=== PATIENT | female | born 1990 | race Caucasian/White ===

== ENCOUNTER → 2016-12-09 | Outpatient (CLI) | payer OTHER ==
[~2016-12-09] MED LIST: ALBU17IN INH; CLIN1CAP5 PO; FOLI5INJ2 PO; INSULADS INJ; INSUN SC; INSUR SC; INSURSDRX SC; STUACAP PO; TYLE500T78 PO; VICO5TAB16 PO; VITAPRTA PO
--- NOTE | 2016-12-10 13:08 | REP ---
CERVICAL SPINE COMPLETE: 12/09/2016. Clinical history: Neck pain. No prior study. Findings: Nine views are provided. There is no torticollis on the AP view. The pedicles, spinous and transverse processes grossly intact. Open-mouth view shows dens and lateral masses aligning normally. Lateral view shows loss of normal cervical lordosis but flexion and extension views show adequate range of motion and no instability. Disc space and vertebral body heights are intact. There is no subluxation. C1-2 relationships were normal on all views. Foramina are adequate bilaterally. Impression: 1. Slight straightening of the cervical spine on the lateral view may reflect some spasm but there is no compression deformity, disc space narrowing, fracture or malalignment. The range of motion was adequate. C1-2 relationship normal. Signed by Yuniel Melo MD 12/10/2016 02:59 P
== END ==
LOC: M RAD 09:09
PROVIDERS: ATTEND Nurse Practitioner Family
DX: M54.2 Cervicalgia (principal)

== ENCOUNTER 2016-12-15 11:29 | Emergency (ER) | payer OTHER ==
[~2016-12-15] VITALS: Ht 165.1 cm; Wt 136.1 kg
[2016-12-15 11:30] VITALS: BP 160/89
[2016-12-15] MEDS ORDERED: IBUP60TA PO (11:39)
[2016-12-15] MEDS ORDERED: RABIES VACCINE HUMAN 2.5 INTERNATIONAL UNITS/ML VIAL (90675) IM ONE (12:15)
[2016-12-15] MEDS ORDERED: RABIES IMMUNE GLOBULIN 1500 INTERNATIONAL UNITS/10 ML VIAL (90375) IM ONE (12:15)
== END 2016-12-15 13:01 | disposition home or self-care (01) ==
LOC: M ED 12:08
DX: Z20.3 Contact with and (suspected) exposure to rabies (principal)

== ENCOUNTER 2016-12-18 12:04 | Emergency (ER) | payer OTHER ==
[~2016-12-18] VITALS: Ht 165.1 cm; Wt 136.1 kg
[2016-12-18 12:04] VITALS: BP 170/85
[~2016-12-18 12:04] MED LIST changes: +IBUP60TA PO
[2016-12-18] MEDS ORDERED: RABIES VACCINE HUMAN 2.5 INTERNATIONAL UNITS/ML VIAL (90675) IM ONE (12:30)
== END 2016-12-18 12:50 | disposition home or self-care (01) ==
LOC: M ED 12:33
DX: Z20.3 Contact with and (suspected) exposure to rabies (principal)

== ENCOUNTER 2016-12-22 11:36 | Emergency (ER) | payer OTHER ==
[~2016-12-22] VITALS: Ht 165.1 cm; Wt 136.1 kg
[2016-12-22] MEDS ORDERED: RABIES VACCINE HUMAN 2.5 INTERNATIONAL UNITS/ML VIAL (90675) IM ONE (12:15)
[2016-12-22 12:51] VITALS: BP 149/90
== END 2016-12-22 12:52 | disposition home or self-care (01) ==
LOC: M ED 12:10
DX: Z23 Encounter for immunization (principal); Z20.3 Contact with and (suspected) exposure to rabies; S61.451D Open bite of right hand, subsequent encounter; W54.0XXD Bitten by dog, subsequent encounter; Y92.89 Other specified places as the place of occurrence of the external cause; Y93.89 Activity, other specified; Y99.8 Other external cause status; Z79.899 Other long term (current) drug therapy; Z79.4 Long term (current) use of insulin; Z88.0 Allergy status to penicillin; F17.210 Nicotine dependence, cigarettes, uncomplicated

== ENCOUNTER → 2016-12-22 | Outpatient (CLI) | payer OTHER ==
[2016-12-22 11:48] LABS: ALBUMIN 3.1 GM/DL (3.2-5.2); ALBUMIN/GLOBULIN RATIO 0.94 (1.00-1.93); ALKALINE PHOSPHATASE 56 U/L (45-117); ALT/SGPT 26 U/L (12-78); ANION GAP 7 MEQ/L (8-16); AST/SGOT 18 U/L (15-37); BILIRUBIN,TOTAL 0.2 MG/DL (0.2-1.0); BLOOD UREA NITROGEN 13 MG/DL (7-18); CALCIUM LEVEL 8.8 MG/DL (8.5-10.1); CARBON DIOXIDE LEVEL 27 MEQ/L (21-32); CHLORIDE LEVEL 106 MEQ/L (98-107); CHOLESTEROL LEVEL 195 MG/DL (<200); GLOMERULAR FILTRATION RATE > 60.0 (>60); GLUCOSE, FASTING 147 MG/DL (70-105); POTASSIUM SERUM 4.4 MEQ/L (3.5-5.1); SODIUM LEVEL 140 MEQ/L (136-145); TOTAL PROTEIN 6.4 GM/DL (6.4-8.2); TRIGLYCERIDES LEVEL 98 MG/DL (<150)
== END ==
LOC: M LAB 10:45
PROVIDERS: ATTEND Nurse Practitioner Family
DX: E11.65 Type 2 diabetes mellitus with hyperglycemia (principal)

== ENCOUNTER 2016-12-29 16:18 | Emergency (ER) | payer OTHER ==
[~2016-12-29] VITALS: Ht 165.1 cm; Wt 136.1 kg
[2016-12-29 16:18] VITALS: BP 158/87
[2016-12-29] MEDS ORDERED: RABIES VACCINE HUMAN 2.5 INTERNATIONAL UNITS/ML VIAL (90675) IM ONE (16:45)
== END 2016-12-29 17:32 | disposition home or self-care (01) ==
LOC: M ED 16:40
DX: Z23 Encounter for immunization (principal); Z20.3 Contact with and (suspected) exposure to rabies; J45.909 Unspecified asthma, uncomplicated; E11.9 Type 2 diabetes mellitus without complications; Z79.899 Other long term (current) drug therapy; Z79.84 Long term (current) use of oral hypoglycemic drugs; Z88.0 Allergy status to penicillin; F17.210 Nicotine dependence, cigarettes, uncomplicated

== ENCOUNTER 2017-08-15 14:14 | Emergency (ER) | payer OTHER ==
[~2017-08-15] VITALS: Ht 165.1 cm; Wt 140.0 kg
[~2017-08-15 14:14] MED LIST changes: +CLIN150C14 PO; -CLIN1CAP5 PO; +IBUP1TAB6 PO; -IBUP60TA PO
[2017-08-15 14:22] VITALS: BP 168/93
[2017-08-15] MEDS ORDERED: TOUJ1.2I SQ (14:26)
[2017-08-15] MEDS ORDERED: MUCI600T37 PO (15:15)
== END 2017-08-15 15:21 | disposition home or self-care (01) ==
LOC: M ED 14:14
DX: J06.9 Acute upper respiratory infection, unspecified (principal); B34.9 Viral infection, unspecified; E11.9 Type 2 diabetes mellitus without complications; J45.909 Unspecified asthma, uncomplicated; Z79.4 Long term (current) use of insulin; Z88.0 Allergy status to penicillin; F17.210 Nicotine dependence, cigarettes, uncomplicated

== ENCOUNTER → 2017-11-16 | Outpatient (REF) | payer OTHER ==
[2017-11-16 19:58] LABS: HEMATOCRIT 45.8 % (36.0-47.0); HEMOGLOBIN 14.8 g/dl (12.0-16.0); MEAN CORPUSCULAR HEMOGLOBIN 28.4 pg (27.0-33.0); MEAN CORPUSCULAR HGB CONC 32.3 g/dl (32.0-36.5); MEAN CORPUSCULAR VOLUME 87.9 fl (80.0-96.0); PLATELET COUNT, AUTOMATED 342 10^3/uL (150-450); RED BLOOD COUNT 5.21 10^6/uL (4.00-5.40); RED CELL DISTRIBUTION WIDTH 13.2 % (11.5-14.5); WHITE BLOOD COUNT 15.3 10^3/uL (4.0-10.0)
[2017-11-16 20:23] LABS: ESTIMATED AVERAGE GLUCOSE 269 MG/DL (60-110)
[2017-11-16 20:35] LABS: ALBUMIN 3.5 GM/DL (3.2-5.2); ALBUMIN/GLOBULIN RATIO 1.09 (1.00-1.93); ALKALINE PHOSPHATASE 56 U/L (45-117); ALT/SGPT 33 U/L (12-78); ANION GAP 8 MEQ/L (8-16); AST/SGOT 13 U/L (7-37); BILIRUBIN,TOTAL 0.2 MG/DL (0.2-1.0); BLOOD UREA NITROGEN 9 MG/DL (7-18); CALCIUM LEVEL 9.4 MG/DL (8.5-10.1); CARBON DIOXIDE LEVEL 27 MEQ/L (21-32); CHLORIDE LEVEL 107 MEQ/L (98-107); CREATININE FOR GFR 0.51 MG/DL (0.55-1.30); FREE T4 1.07 NG/DL (0.76-1.46); GLOMERULAR FILTRATION RATE > 60.0 (>60); GLUCOSE, FASTING 130 MG/DL (70-100); POTASSIUM SERUM 4.6 MEQ/L (3.5-5.1); SODIUM LEVEL 142 MEQ/L (136-145); TOTAL PROTEIN 6.7 GM/DL (6.4-8.2)
== END ==
LOC: M SFHCADAM 10:40
DX: R80.9 Proteinuria, unspecified (principal); E08.29 Diabetes mellitus due to underlying condition with other diabetic kidney complication
CPT/HCPCS: 84443

== ENCOUNTER → 2017-11-18 | Outpatient (REF) | payer OTHER ==
[2017-11-18 13:57] LABS: MAU/CREAT RATIO 164.7 MCG/MG (0.0-30.0)
== END ==
LOC: M SFHCADAM 12:15
DX: E11.9 Type 2 diabetes mellitus without complications (principal); R80.9 Proteinuria, unspecified
CPT/HCPCS: 82043

== ENCOUNTER → 2018-02-01 | Outpatient (REF) | payer OTHER ==
[2018-02-01 13:26] LABS: ESTIMATED AVERAGE GLUCOSE 189 MG/DL (60-110); HEMOGLOBIN A1c 8.2 %
[2018-02-01 13:27] LABS: ALBUMIN 3.6 GM/DL (3.2-5.2); ALBUMIN/GLOBULIN RATIO 1.06 (1.00-1.93); ALKALINE PHOSPHATASE 52 U/L (45-117); ALT/SGPT 27 U/L (12-78); ANION GAP 8 MEQ/L (8-16); AST/SGOT 15 U/L (7-37); BILIRUBIN,TOTAL 0.2 MG/DL (0.2-1.0); BLOOD UREA NITROGEN 12 MG/DL (7-18); CALCIUM LEVEL 9.4 MG/DL (8.5-10.1); CARBON DIOXIDE LEVEL 26 MEQ/L (21-32); CHLORIDE LEVEL 108 MEQ/L (98-107); CREATININE FOR GFR 0.66 MG/DL (0.55-1.30); GLOMERULAR FILTRATION RATE > 60.0 (>60); GLUCOSE, FASTING 122 MG/DL (70-100); POTASSIUM SERUM 4.4 MEQ/L (3.5-5.1); SODIUM LEVEL 142 MEQ/L (136-145)
== END ==
LOC: M SFHCADAM 08:02
DX: E11.65 Type 2 diabetes mellitus with hyperglycemia (principal)

== ENCOUNTER 2018-08-12 23:04 | Emergency (ER) | payer SELFPAY, OTHER ==
[2018-08-13] MEDS: IPRATROPIUM 0.5MG/ALBUTEROL 2.5MG INH SOL UD 3ML (DUONEB)(J7620) NEB (00:10)
[2018-08-13] MEDS: methylPREDNISolone INJ 125 MG/2 ML VIAL (J2930) IM (00:22)
== END 2018-08-13 02:11 | disposition home or self-care (01) ==
LOC: M ED 08-13 02:11
DX: J40 Bronchitis, not specified as acute or chronic (principal); J45.909 Unspecified asthma, uncomplicated; E66.8 Other obesity; Z79.899 Other long term (current) drug therapy; Z88.0 Allergy status to penicillin; F17.210 Nicotine dependence, cigarettes, uncomplicated
CPT/HCPCS: J2930

== ENCOUNTER 2018-08-16 08:54 | Inpatient (IN) | payer SELFPAY ==
[~2018-08-16] VITALS: Ht 165.1 cm; Wt 143.6 kg
[~2018-08-16 08:54] MED LIST changes: +INSUHUMDS SC; +METF10004 PO; +MUCI600T37 PO; +PRED20TA PO; +TOUJ1.2I SQ
[2018-08-16] MEDS: NICOTINE 14 MG/24 HR TRANSDERMAL TD SCH (09:00)
[2018-08-16] MEDS ORDERED: NS 1,000 ML IV ONE (09:45)
[2018-08-16] MEDS: IPRATROPIUM 0.5MG/ALBUTEROL 2.5MG INH SOL UD 3ML (DUONEB)(J7620) NEB PRN ×4 (09:50→10:32)
[2018-08-16 09:55] LABS: INFLUENZA A AMPLIFICATION NEGATIVE (NEGATIVE); INFLUENZA B AMPLIFICATION NEGATIVE (NEGATIVE)
--- NOTE | 2018-08-16 10:21 | REP ---
Chest two views HISTORY: Cough Comparison: 08/12/2018 The lungs are clear. The heart is normal in size. The pulmonary vasculature is normal in appearance. The bony structure is intact. IMPRESSION: No acute disease. Electronically Signed by Ernesto Castañeda MD 08/16/2018 10:12 A
[2018-08-16 10:26] LABS: HEMATOCRIT 38.1 % (36.0-47.0); HEMOGLOBIN 12.7 g/dl (12.0-15.5); MEAN CORPUSCULAR HEMOGLOBIN 28.2 pg (27.0-33.0); MEAN CORPUSCULAR HGB CONC 33.3 g/dl (32.0-36.5); MEAN CORPUSCULAR VOLUME 84.7 fl (80.0-96.0); PLATELET COUNT, AUTOMATED 338 10^3/uL (150-450)
[2018-08-16 10:55] LABS: BLOOD UREA NITROGEN 10 MG/DL (7-18); CALCIUM LEVEL 8.4 MG/DL (8.5-10.1); CARBON DIOXIDE LEVEL 22 MEQ/L (21-32); CHLORIDE LEVEL 109 MEQ/L (98-107); CREATININE FOR GFR 0.59 MG/DL (0.55-1.30); GLOMERULAR FILTRATION RATE > 60.0 (>60); GLUCOSE, FASTING 207 MG/DL (70-100); POTASSIUM SERUM 3.8 MEQ/L (3.5-5.1); SODIUM LEVEL 141 MEQ/L (136-145)
[2018-08-16 11:17] VITALS: O2SAT 85
[2018-08-16 11:46] LABS: ABG BASE EXCESS -4.4 (-2.0-2.0); ABG HCO3 17.9 MEQ/L (22.0-26.0); ABG O2 SATURATION 90.6 % (95.0-99.0); ABG PARTIAL PRESSURE O2 58.6 mmHg (75.0-100.0); ABG STANDARD HCO3 20.7 MEQ/L (22.0-26.0); ABG TOTAL CO2 18.7 MEQ/L (22.0-29.0); ABG pH (ARTERIAL) 7.456 UNITS (7.350-7.450)
[2018-08-16] MEDS ORDERED: ISOVUE-370 76% 100ML VIAL (Q9967) As Ordered ONE (12:17)
[2018-08-16] MEDS ORDERED: AZITHROMYCIN 250 MG TAB PO ONE (14:00)
[2018-08-16] MEDS ORDERED: cefTRIAXone SOD 1 GM in D5W MINI-BAG PLUS 50 ML IV ONE (14:00)
--- NOTE | 2018-08-16 14:35 | HPEPDOC ---
[facility] Medical History & Physical Date of Admission Aug 16, 2018 Attending Physician: KADY GATES MD History and Physical CHIEF COMPLAINT: Cough with shortness of breath 4 days HISTORY OF PRESENT ILLNESS: Patient is a 27-year-old female with medical history significant for asthma, diabetes. Said to have developed cough with shortness of breath 4 days ago with little or no response to her usual breathing treatments. She was seen in the emergency room 4 days ago for this illness, received breathing treatments and was discharged on steroids. However, no appreciable improvement, hence her revisit today. She describes associated chills, night sweats with subjective fevers. She also reports similar illness in her and roommate. No associated chest pain, no palpitations, no dizziness, no headaches. She denies any recent long distance travel. She denies no unusual/recent lower extremity swellings or pains. No change in her bowel or urinary habits. Patient was giving breathing treatments in the emergency room. Initial chest x-ray was negative for any acute findings. However, due to her complaints of chest discomfort. She had CTA done which revealed ground glass opacity with infiltrates. Pulmonary edema versus atypical pneumonia. She was also noted to have decelerated from O2 sat of 95-85 on exertion and on account of this, Hospitalist called in for further evaluation and possible admission. PAST MEDICAL HISTORY: Per HPI PAST SURGICAL HISTORY: None SOCIAL HISTORY: Marital status: Yes. Resides in: Resides with Children: No children Denies illicit drug use. He indulges in alcohol occasionally. Smoked half a pack a day of cigarettes since age 11, currently trying to quit. FAMILY HISTORY: Diabetes runs in the family. Older brother with prior history of PE. ALLERGIES: Please see below. REVIEW OF SYSTEMS: 12 point review of systems negative other than that described in the body of HP I. HOME MEDICATIONS: Please see below. PHYSICAL EXAMINATION: GENERAL APPEARANCE: Young woman, lying calmly in bed, with moderate dyspnea. She is not pale, anicteric and afebrile HEENT: Atraumatic. Neck: Supple. LUNGS: Bilateral wheezing. CARDIOVASCULAR: S1 and 2 heard, no murmurs, rubs or gallops. ABDOMEN: Obese, soft, not tender, not distended. Bowel sounds normoactive. MUSCULOSKELETAL: Apparently within normal limits EXTREMITIES: No pedal edema, 2+ bilateral pedal pulses noted. NEUROLOGICAL: Awake, alert, oriented 3. PSYCHIATRIC: Normal affect LABORATORY DATA: See below. IMAGING: Chest x-ray: No acute disease. CTA chest: Pulmonary edema versus atypical pneumonia. MICROBIOLOGY: Please see below. ASSESSMENT: 27-year-old female with cough and shortness of breath, desaturating with exertion and with history of failed outpatient treatment. Imaging consistent with possible pneumonia. Exam reveals wheezing. Labs with elevated white count. DIAGNOSES: 1. Acute hypoxic respiratory failure likely secondary to pneumonia. 2. Pneumonia. SECONDARY DIAGNOSES: Diabetes. . PLAN: 1. We'll admit patient under care of Dr. Gates to medical floors. Patient already received ceftriaxone and azithromycin stat doses. Patient will continue same antibiotics tomorrow. She should get 24-48 hours of IV antibiotics. Follow blood cultures. Follow temperature trends. Follow white count in the morning tomorrow. 2. Will continue breathing treatments. Continue low-dose steroid, Solu-Medrol 20 mg twice a day IV. 3. ADA diet with insulin sliding scale for diabetes. 4. DVT prophylaxis with subcutaneous heparin. 5. GI prophylaxis not indicated at this time. 6. Further management will be per patient's clinical course. 7. Extensive smoking cessation counseling lasted more than 10 minutes done. I'll procure nicotine patch. Vital Signs Vital Signs Date Time Temp Pulse Resp B/P (MAP) Pulse Ox O2 Delivery O2 Flow Rate FiO2 08/16/18 11:17 85 Room Air 08/16/18 11:05 98.9 99 18 164/87 (112) Laboratory Data Labs 24H Laboratory Tests 2 08/16/18 09:18: Influenza Type A (RT-PCR) NEGATIVE, Influenza Type B (RT-PCR) NEGATIVE, Respiratory Syncytial Virus (RT-PCR NEGATIVE 08/16/18 10:12: Anion Gap 10, Glomerular Filtration Rate > 60.0, Blood Urea Nitrogen 10, Cr eatinine 0.59, Sodium Level 141, Potassium Level 3.8, Chloride Level 109H, Carbon Dioxide Level 22, Calcium Level 8.4L 08/16/18 10:14: Nucleated Red Blood Cells % (auto) 0.0, Lactic Acid Level 1.2 08/16/18 11:31: D-Dimer, Quantitative 1187.98H 08/16/18 11:34: Blood Gas Bicarbonate Standard 20.7L, Arterial Blood pH 7.456H, Arterial Blood Partial Pressure CO2 26.0L, Arterial Blood Partial Pressure O2 58.6L, Arterial Blood Total CO2 18.7L, Arterial Blood HCO3 17.9L, Arterial Blood Base Excess - 4.4L, Arterial Blood Oxygen Saturation 90.6L CBC/BMP Laboratory Tests 08/16/18 10:12 Calcium Level 8.4 L 08/16/18 10:14 Red Blood Count 4.50, Mean Corpuscular Volume 84.7, Mean Corpuscular Hemoglobin 28.2, Mean Corpuscular Hemoglobin Concent 33.3, Red Cell Distribution Width 13.2 Microbiology Microbiology 08/16/18 Blood Culture, Received Pending 08/16/18 Blood Culture, Received Pending Home Medications Scheduled (Maria Ines Ryder) 300 Unit/Ml Inj, 90 UNITS SQ DAILY Ibuprofen (Ibuprofen) 600 Mg Tab, 600 MG PO ASDIRECTED Metformin Hydrochloride (Metformin HCl) 1,000 Mg Tab, 1,000 MG PO BID Prednisone (Prednisone) 20 Mg Tab, 60 MG PO DAILY Scheduled PRN Acetaminophen (Tylenol Extra Strength) 500 Mg Tab, 1,000 MG PO Q4H PRN for PAIN Albuterol Sulfate (Ventolin Hfa) 200 Puff/8 Gm Aers, 2 PUFF INH Q4H PRN for SHORTNESS OF BREATH Miscellaneous Medications Insulin Human Lispro (Humalog) 1 Units/0.01 Ml Inj, 1 UNITS SC sliding scale TID prn Allergies Coded Allergies: Penicillins (Verified Allergy, Severe, SWELLING - HAS TAKEN ROCEPHIN WITH NO PROBLEM BEFORE, 08/16/18) LUIS LEOS MD Aug 16, 2018 14:35
[2018-08-16] MEDS ORDERED: PRED20TA PO (14:39)
[2018-08-16] MEDS ORDERED: VENTAER INH (14:39)
[2018-08-16] MEDS ORDERED: IBUPOTC PO (14:39)
[2018-08-16] MEDS ORDERED: ACETAMINOPHEN TAB 650MG DOSE (2X325MG) PO PRN (14:45)
[2018-08-16] MEDS ORDERED: IPRATROPIUM 0.02% SOLN 0.5MG/2.5 ML NEB INH PRN (14:45)
[2018-08-16] MEDS ORDERED: ONDANSETRON 4MG/2ML VIAL (J2405) IV PRN (14:45)
[2018-08-16] MEDS ORDERED: DEXTROSE 50% 50 ML SYRINGE IV PRN (15:00)
[2018-08-16] MEDS ORDERED: GLUCOSE 4 GM CHEW TABLET PO PRN (15:00)
[2018-08-16] MEDS ORDERED: GLUCAGON FOR INJ 1 MG VIAL (J1610) SC PRN (15:00)
--- NOTE | 2018-08-16 15:16 | REP ---
CT pulmonary angiogram: With IV contrast. History: Cough and shortness of breath. Elevated D-dimer. Comparison studies: December 20, 2012 Contrast dose: 75 mL of Isovue [address] technique: Helical scanning is acquired and overlapping 1.5 mm and contiguous 3 mm axial images are reformatted. In addition, maximum intensity projection and multiplanar re-formation images are generated in sagittal and coronal imaging projections. CT pulmonary angiographic findings: There is good opacification of the pulmonary arterial tree. No filling defect or vessel cutoff is seen in axial CT images or and maximal intensity projection images. There is no CT evidence to suggest pulmonary embolism. The thoracic aorta enhances homogeneously without evidence of dissection or aneurysm. There are stable normal-sized hilar and right paratracheal lymph nodes unchanged from the 2013 prior study. There are bilateral patchy areas of ground-glass opacity consistent with alveolar edema or patchy alveolar infiltrate. The pattern is symmetric and fairly diffuse. There were similar but much less extensive patchy areas of ground-glass opacity on the CT study from 2012. There is advanced diffuse fatty infiltration of the liver. There is a low-density lesion in the left adrenal gland, 3.7 cm in greatest diameter, compatible with benign adrenal adenoma. This was present in 2013 and measured 3.0 cm. There is a small sliding-type hiatal hernia. No pleural or pericardial effusion is seen. No bony destructive lesion. Impression: No CT evidence of pulmonary embolus. Patchy ground-glass edema/infiltrate pattern throughout the upper and lower lung fatima bilaterally. Pulmonary edema versus atypical pneumonia. The pulmonary parenchymal findings are felt to be an acute change since the August 12, 2018 prior chest radiograph. Electronically Signed by John Wiley MD 08/16/2018 03:28 P
[2018-08-16 16:00] VITALS: BP 142/70
[2018-08-16] MEDS: ALBUTEROL SULFATE 2.5 MG/0.5 ML INH NEB SOLN NEB SCH ×3 (16:01→23:53)
[2018-08-16] MEDS: HumaLOG INSULIN (NovoLOG) PER UNIT SC SCH ×2 (17:20→21:24)
[2018-08-16] MEDS: HEPARIN SOD (PORCINE) 5000 UNITS/ML VIAL SQ SCH (21:24)
[2018-08-16] MEDS: guaiFENesin ER 600 MG TAB PO PRN (21:24)
[2018-08-16 22:00] VITALS: BP 160/99
[2018-08-17] MEDS: ALBUTEROL SULFATE 2.5 MG/0.5 ML INH NEB SOLN NEB SCH ×6 (03:32→23:17)
[2018-08-17 06:00] VITALS: BP 158/93
[2018-08-17] MEDS ORDERED: methylPREDNISolone INJ 125 MG/2 ML VIAL (J2930) IV ONE (06:00)
[2018-08-17] MEDS: guaiFENesin ER 600 MG TAB PO PRN (06:16)
[2018-08-17 06:50] LABS: ALBUMIN 2.7 GM/DL (3.2-5.2); ALT/SGPT 20 U/L (12-78); BILIRUBIN,TOTAL 0.3 MG/DL (0.2-1.0); BLOOD UREA NITROGEN 11 MG/DL (7-18); CALCIUM LEVEL 8.5 MG/DL (8.5-10.1); CARBON DIOXIDE LEVEL 25 MEQ/L (21-32); CHLORIDE LEVEL 107 MEQ/L (98-107); CREATININE FOR GFR 0.56 MG/DL (0.55-1.30); GLOMERULAR FILTRATION RATE > 60.0 (>60); GLUCOSE, FASTING 117 MG/DL (70-100); POTASSIUM SERUM 3.7 MEQ/L (3.5-5.1); SODIUM LEVEL 141 MEQ/L (136-145); TOTAL PROTEIN 6.9 GM/DL (6.4-8.2)
[2018-08-17 07:13] LABS: HEMATOCRIT 37.5 % (36.0-47.0); HEMOGLOBIN 12.1 g/dl (12.0-15.5); MEAN CORPUSCULAR HEMOGLOBIN 28.1 pg (27.0-33.0); MEAN CORPUSCULAR HGB CONC 32.3 g/dl (32.0-36.5); MEAN CORPUSCULAR VOLUME 87.2 fl (80.0-96.0); PLATELET COUNT, AUTOMATED 356 10^3/uL (150-450); WHITE BLOOD COUNT 18.7 10^3/uL (4.0-10.0)
[2018-08-17 07:16] LABS: MAGNESIUM LEVEL 2.2 MG/DL (1.8-2.4)
[2018-08-17 07:49] LABS: ATYPICAL LYMPH 4 % (0-5); LYMPHOCYTES 23 % (16-52); MONOCYTES 2 % (0-8); NEUTROPHILS 71 % (35-75); PLATELET ESTIMATE NORMAL (NORMAL)
[2018-08-17] MEDS: AZITHROMYCIN 250 MG TAB PO SCH (08:20)
[2018-08-17] MEDS: NICOTINE 14 MG/24 HR TRANSDERMAL TD SCH (08:21)
[2018-08-17] MEDS: HumaLOG INSULIN (NovoLOG) PER UNIT SC SCH ×4 (08:21→20:38)
[2018-08-17] MEDS: HEPARIN SOD (PORCINE) 5000 UNITS/ML VIAL SQ SCH ×2 (08:22→20:38)
[2018-08-17] MEDS: predniSONE 20 MG TAB PO SCH (12:29)
--- NOTE | 2018-08-17 12:53 | IPNPDOC ---
Text Note Date of Service The patient was seen on 08/17/18. NOTE Subjective: Patient is a 27 year old female with a PMHx of Asthma, DM2 who presented to the ER with complaints of SOB for 4 days, associated with produc tive cough. Patient was admitted to hospitalist service for potential community- acquired pneumonia. Patient was seen and examined at the bedside. Patient notes improvement in her breathing, however, only very mildly. She denies any chest pain, palpitations, nausea, vomiting, abdominal pain, constipation, diarrhea or discomfort with urination. Objective: Vitals (See below) General: Lying in bed, no acute distress, comfortable, AAOx3 HEENT: NC, AT CVS: RRR, +S1S2 Lungs: Fair air entry b/l, bilateral expiratory wheezing, no appreciable rhonchi or rales Abdomen: Soft, ND, NT Extremities: - Edema, - Calf tenderness Assessment and plan: Pneumonia - likely 2/2 Community acquired pneumonia - Patient is failed outpatient treatment - Clinically she has noted improvement in her breathing compared to yesterday - Distal with expiratory wheezing bilaterally - Leukocytosis has shown improvement - CTA Chest 08/16: No CT evidence of pulmonary embolus. Patchy ground-glass edema/infiltrate pattern throughout the upper and lower lung fatima bilaterally. Pulmonary edema versus atypical pneumonia. The pulmonary parenchymal findings are felt to be an acute change since the August 12, 2018 prior chest radiograph. - Will continue with azithromycin and Ceftriaxone (Day #2) - c/w Inhaled therapy as ordered Asthma - There is evidence of expiratory wheezing - I have added prednisone to be resumed this morning; will taper this as her breathing improves - Continue with inhaled therapy as ordered DM2 - c/w ISS - Currently patient does not have any long-acting insulin on board. However, will likely have to reintroduce this as she is on corticosteroids DVT prophylaxis - c/w Heparin VS,Fishbone, I+O VS, Fishbone, I+O Laboratory Tests 08/17/18 05:34 Red Blood Count 4.30, Mean Corpuscular Volume 87.2, Mean Corpuscular Hemoglobin 28.1, Mean Corpuscular Hemoglobin Concent 32.3, Red Cell Distribution Width 13.4, Lymphocytes # (Auto) , Calcium Level 8.5, Aspartate Amino Transf (AST/SGOT) 21, Alanine Aminotransferase (ALT/SGPT) 20, Alkaline Phosphatase 52, Total Bilirubin 0.3, Total Protein 6.9, Albumin 2.7 L Vital Signs Date Time Temp Pulse Resp B/P (MAP) Pulse Ox O2 Delivery O2 Flow Rate FiO2 08/17/18 06:00 97.3 98 20 158/93 (114) 91 Room Air I&O- Last 24 Hours up to 6 AM 08/17/18 06:00 Intake Total 2160 ml Output Total 1050 ml Balance 1110 ml KADY GATES MD Aug 17, 2018 12:53
[2018-08-17 14:00] VITALS: BP 140/87
[2018-08-17] MEDS ORDERED: ALBUTEROL SULFATE 2.5 MG/0.5 ML INH NEB SOLN NEB PRN (14:30)
[2018-08-17] MEDS ORDERED: cefTRIAXone SOD 1 GM in D5W MINI-BAG PLUS 50 ML IV SCH (15:00)
[2018-08-17 22:00] VITALS: BP 148/90
[2018-08-18] MEDS: ALBUTEROL SULFATE 2.5 MG/0.5 ML INH NEB SOLN NEB SCH ×2 (04:00→08:21)
[2018-08-18 06:00] VITALS: BP 140/82
[2018-08-18 06:18] LABS: HEMOGLOBIN 12.1 g/dl (12.0-15.5); MEAN CORPUSCULAR HEMOGLOBIN 27.7 pg (27.0-33.0); MEAN CORPUSCULAR HGB CONC 32.7 g/dl (32.0-36.5); MEAN CORPUSCULAR VOLUME 84.7 fl (80.0-96.0); PLATELET COUNT, AUTOMATED 404 10^3/uL (150-450); RED BLOOD COUNT 4.37 10^6/uL (4.00-5.40); WHITE BLOOD COUNT 24.1 10^3/uL (4.0-10.0)
[2018-08-18 06:37] LABS: ALBUMIN 2.8 GM/DL (3.2-5.2); ALT/SGPT 21 U/L (12-78); BILIRUBIN,TOTAL 0.2 MG/DL (0.2-1.0); BLOOD UREA NITROGEN 14 MG/DL (7-18); CALCIUM LEVEL 8.9 MG/DL (8.5-10.1); CARBON DIOXIDE LEVEL 22 MEQ/L (21-32); CHLORIDE LEVEL 109 MEQ/L (98-107); CREATININE FOR GFR 0.68 MG/DL (0.55-1.30); GLOMERULAR FILTRATION RATE > 60.0 (>60); GLUCOSE, FASTING 181 MG/DL (70-100); MAGNESIUM LEVEL 2.3 MG/DL (1.8-2.4); POTASSIUM SERUM 3.6 MEQ/L (3.5-5.1); SODIUM LEVEL 140 MEQ/L (136-145); TOTAL PROTEIN 7.6 GM/DL (6.4-8.2)
[2018-08-18 06:53] LABS: ANISOCYTOSIS 1+; ATYPICAL LYMPH 1 % (0-5); LYMPHOCYTES 27 % (16-52); MONOCYTES 6 % (0-8); NEUTROPHILS 65 % (35-75); PLATELET ESTIMATE INCREASED (NORMAL)
--- NOTE | 2018-08-18 07:49 | IPNPDOC ---
Subjective Date Seen The patient was seen on 08/18/18. VS, I&O, 24H, [facility] Vital Signs/I&O Vital Signs Date Time Temp Pulse Resp B/P (MAP) Pulse Ox O2 Delivery O2 Flow Rate FiO2 08/18/18 06:00 97.4 66 18 140/82 (101) 96 08/17/18 14:00 Room Air I&O- Last 24 Hours up to 6 AM 08/18/18 06:00 Intake Total 2280 ml Output Total 2180 ml Balance 100 ml Laboratory Data 24H LABS Laboratory Tests 2 08/17/18 11:37: Bedside Glucose (Misc Panel) 276H 08/17/18 16:37: Bedside Glucose (Misc Panel) 300H 08/17/18 20:17: Bedside Glucose (Misc Panel) 398H 08/18/18 05:54: White Blood Count 24.1H, Red Blood Count 4.37, Hemoglobin 12.1, Hematocrit 37.0, Mean Corpuscular Volume 84.7, Mean Corpuscular Hemoglobin 27.7, Mean Corpuscular Hemoglobin Concent 32.7, Red Cell Distribution Width 13.1, Platelet Count 404, Lymphocytes # (Auto) , Nucleated Red Blood Cells % (auto) 0.0, Neutrophils 65, Band Neutrophils 1, Lymphocytes (Manual) 27, Monocytes (Manual) 6, Atypical Lymphocytes 1, Platelet Estimate INCREASED, Anisocytosis 1+, Anion Gap 9, Glomerular Filtration Rate > 60.0, Blood Urea Nitrogen 14, Creatinine 0.68, Sodium Level 140, Potassium Level 3.6, Chloride Level 109H, Carbon Dioxide Level 22, Calcium Level 8.9, Aspartate Amino Transf (AST/SGOT) 14, Alanine Aminotransferase (ALT/SGPT) 21, Alkaline Phosphatase 61, Total Bilirubin 0.2, Total Protein 7.6, Albumin 2.8L, Magnesium Level 2.3, Albumin/Globulin Ratio 0.58L CBC/BMP Laboratory Tests 08/18/18 05:54 Red Blood Count 4.37, Mean Corpuscular Volume 84.7, Mean Corpuscular Hemoglobin 27.7, Mean Corpuscular Hemoglobin Concent 32.7, Red Cell Distribution Width 13.1, Lymphocytes # (Auto) , Calcium Level 8.9, Aspartate Amino Transf (AST/SGOT) 14, Alanine Aminotransferase (ALT/SGPT) 21, Alkaline Phosphatase 61, Total Bilirubin 0.2, Total Protein 7.6, Albumin 2.8 L Microbiology Microbiology 08/16/18 Blood Culture - Preliminary, Resulted No growth after 24 hours . All specim... 08/16/18 Blood Culture - Preliminary, Resulted No growth after 24 hours . All specim... 08/17/18 Respiratory Virus Panel (PCR) (PRISCILLA) - Final, Complete Human Rhinovirus/Enterovirus Chris Ho MD Aug 18, 2018 07:49
[2018-08-18] MEDS: HumaLOG INSULIN (NovoLOG) PER UNIT SC SCH (08:58)
[2018-08-18] MEDS: AZITHROMYCIN 250 MG TAB PO SCH (08:58)
[2018-08-18] MEDS: predniSONE 20 MG TAB PO SCH (08:58)
[2018-08-18] MEDS: HEPARIN SOD (PORCINE) 5000 UNITS/ML VIAL SQ SCH (08:59)
[2018-08-18] MEDS: NICOTINE 14 MG/24 HR TRANSDERMAL TD SCH (08:59)
[2018-08-18] MEDS ORDERED: cefTRIAXone SOD 1 GM in D5W MINI-BAG PLUS 50 ML IV ONE (09:00)
[2018-08-18] MEDS ORDERED: LEVEMIR (INSULIN DETEMIR) 1 UNITS/0.01ML SC SCH (09:00)
[2018-08-18] MEDS ORDERED: PRED20TA PO (10:40)
[2018-08-18] MEDS ORDERED: AZIT-12 PO (10:40)
[2018-08-18] MEDS ORDERED: CEFD300CAP PO (10:40)
--- NOTE | 2018-08-18 10:41 | DS.PDOC ---
Discharge Summary General Date of Admission Aug 16, 2018 at 14:36 Discharge Summary PROCEDURES PERFORMED DURING STAY: [None]. ADMITTING DIAGNOSES: 1. . DISCHARGE DIAGNOSES: 1. . COMPLICATIONS/CHIEF COMPLAINT: Acute Respiratory Failure With Hypoxia,Pneumoia. HISTORY OF PRESENT ILLNESS: . HOSPITAL COURSE: . DISCHARGE MEDICATIONS: Please see below. ALLERGIES: Please see below. PHYSICAL EXAMINATION ON DISCHARGE: VITAL SIGNS: Please see below. GENERAL: HEENT: NECK: CARDIOVASCULAR EXAMINATION: RESPIRATORY EXAMINATION: ABDOMINAL EXAMINATION: EXTREMITIES: SKIN: NEUROLOGICAL EXAMINATION: PSYCHIATRIC EXAMINATION: LABORATORY DATA: Please see below. IMAGING: PROGNOSIS: ACTIVITY: [As tolerated]. DIET: DISCHARGE PLAN: DISPOSITION: . DISCHARGE INSTRUCTIONS: 1. . ITEMS TO FOLLOWUP ON ON OUTPATIENT: 1. . DISCHARGE CONDITION: [Stable]. TIME SPENT ON DISCHARGE: Greater than minutes. Vital Signs/I&Os Vital Signs Date Time Temp Pulse Resp B/P (MAP) Pulse Ox O2 Delivery O2 Flow Rate FiO2 08/18/18 06:00 97.4 66 18 140/82 (101) 96 08/17/18 14:00 Room Air I&O- Last 24 Hours up to 6 AM 08/18/18 06:00 Intake Total 2280 ml Output Total 2180 ml Balance 100 ml Laboratory Data Labs 24H Laboratory Tests 2 08/17/18 11:37: Bedside Glucose (Misc Panel) 276H 08/17/18 16:37: Bedside Glucose (Misc Panel) 300H 08/17/18 20:17: Bedside Glucose (Misc Panel) 398H 08/18/18 05:54: White Blood Count 24.1H, Red Blood Count 4.37, Hemoglobin 12.1, Hematocrit 37.0, Mean Corpuscular Volume 84.7, Mean Corpuscular Hemoglobin 27.7, Mean Corpuscular Hemoglobin Concent 32.7, Red Cell Distribution Width 13.1, Platelet Count 404, Lymphocytes # (Auto) , Nucleated Red Blood Cells % (auto) 0.0, Neutr ophils 65, Band Neutrophils 1, Lymphocytes (Manual) 27, Monocytes (Manual) 6, Atypical Lymphocytes 1, Platelet Estimate INCREASED, Anisocytosis 1+, Anion Gap 9, Glomerular Filtration Rate > 60.0, Blood Urea Nitrogen 14, Creatinine 0.68, Sodium Level 140, Potassium Level 3.6, Chloride Level 109H, Carbon Dioxide Level 22, Calcium Level 8.9, Aspartate Amino Transf (AST/SGOT) 14, Alanine Aminotransferase (ALT/SGPT) 21, Alkaline Phosphatase 61, Total Bilirubin 0.2, Total Protein 7.6, Albumin 2.8L, Magnesium Level 2.3, Albumin/Globulin Ratio 0.58L CBC/BMP Laboratory Tests 08/18/18 05:54 Red Blood Count 4.37, Mean Corpuscular Volume 84.7, Mean Corpuscular Hemoglobin 27.7, Mean Corpuscular Hemoglobin Concent 32.7, Red Cell Distribution Width 13.1, Lymphocytes # (Auto) , Calcium Level 8.9, Aspartate Amino Transf (AST/SGOT) 14, Alanine Aminotransferase (ALT/SGPT) 21, Alkaline Phosphatase 61, Total Bilirubin 0.2, Total Protein 7.6, Albumin 2.8 L FSBS Laboratory Tests Test 08/17/18 11:37 08/17/18 16:37 08/17/18 20:17 Range/Units Bedside Glucose (Misc Panel) 276 300 398 70-105 MG/DL Microbiology Microbiology 08/16/18 Blood Culture - Preliminary, Resulted No Growth after 48 hours. All Specime... 08/16/18 Blood Culture - Preliminary, Resulted No Growth after 48 hours. All Specime... 08/17/18 Respiratory Virus Panel (PCR) (PRISCILLA) - Final, Complete Human Rhinovirus/Enterovirus Discharge Medications Scheduled (Maria Ines Ryder) 300 Unit/Ml Inj, 90 UNITS SQ DAILY, (Reported) Azithromycin (Azithromycin) 250 Mg Tab, 250 MG PO DAILY Cefdinir (Cefdinir) 300 Mg Cap, 300 MG PO BID Insulin Human Lispro (Humalog) 1 Units/0.01 Ml Inj, 1 UNITS SC AC, (Reported) PER SLIDING SCALE. DOES NOT TAKE INSULIN IF BS <150 Metformin Hydrochloride (Metformin HCl) 1,000 Mg Tab, 1,000 MG PO BID, (Reported) Prednisone (Prednisone) 20 Mg Tab, 40 MG PO DAILY take 2 tabs x 3 days, then 1 tab x 3 days, then 1/2 tab x 4 days, then stop Scheduled PRN Acetaminophen (Tylenol Extra Strength) 500 Mg Tab, 1,000 MG PO Q4H PRN for PAIN, (Reported) Albuterol Sulfate (Ventolin Hfa) 108 Mcg/Act Aer, 2 PUFF INH Q4H PRN for SHORTNESS OF BREATH, (Reported) Ibuprofen (Ibuprofen) 200 Mg Tab, 600 MG PO QID PRN for PAIN, (Reported) Allergies Coded Allergies: Penicillins (Verified Allergy, Severe, SWELLING - HAS TAKEN ROCEPHIN WITH NO PROBLEM BEFORE, 08/16/18) Chris Ho MD Aug 18, 2018 10:41
[2018-08-19] MEDS ORDERED: INFLUENZA QUADRIVALENT PF VACCINE 0.5ML SYRINGE (90686) IM ONE (09:00)
== END 2018-08-18 11:54 | disposition home or self-care (01) | DRG 139 ==
LOC: M ED 08:54 → M ED INP 14:36 → M MSPAV 15:53
PROVIDERS: ADMIT Hospitalist; ATTEND Family Medicine
DX: J18.9 Pneumonia, unspecified organism (principal); J96.01 Acute respiratory failure with hypoxia; Z79.4 Long term (current) use of insulin; Z79.899 Other long term (current) drug therapy; Z88.0 Allergy status to penicillin; J45.909 Unspecified asthma, uncomplicated; E11.9 Type 2 diabetes mellitus without complications; F17.210 Nicotine dependence, cigarettes, uncomplicated

== ENCOUNTER → 2018-12-13 | Outpatient (REF) | payer BC ==
[~2018-12-13] MED LIST changes: +AZIT-12 PO; +CEFD300CAP PO; +IBUPOTC PO; +VENTAER INH; -VICO5TAB16 PO; +VICO5TAB17 PO
[2018-12-13 12:36] LABS: HEMATOCRIT 41.6 % (36.0-47.0); MEAN CORPUSCULAR HEMOGLOBIN 27.2 pg (27.0-33.0); MEAN CORPUSCULAR HGB CONC 31.3 g/dl (32.0-36.5); PLATELET COUNT, AUTOMATED 411 10^3/uL (150-450); RED BLOOD COUNT 4.78 10^6/uL (4.00-5.40); WHITE BLOOD COUNT 15.2 10^3/uL (4.0-10.0)
[2018-12-13 12:48] LABS: ALBUMIN 3.4 GM/DL (3.2-5.2); ALT/SGPT 21 U/L (12-78); BILIRUBIN,TOTAL 0.2 MG/DL (0.2-1.0); BLOOD UREA NITROGEN 11 MG/DL (7-18); CALCIUM LEVEL 8.8 MG/DL (8.5-10.1); CARBON DIOXIDE LEVEL 26 MEQ/L (21-32); CHLORIDE LEVEL 112 MEQ/L (98-107); FREE T4 1.03 NG/DL (0.76-1.46); GLOMERULAR FILTRATION RATE > 60.0 (>60); GLUCOSE, FASTING 129 MG/DL (70-100); POTASSIUM SERUM 4.8 MEQ/L (3.5-5.1); SODIUM LEVEL 142 MEQ/L (136-145); TOTAL 25(OH) VITAMIN D 14.3 NG/ML (30.0-100.0); TOTAL PROTEIN 6.3 GM/DL (6.4-8.2)
[2018-12-13 13:12] LABS: HEMOGLOBIN A1c 7.9 %
== END ==
LOC: M SFHCADAM 07:54
PROVIDERS: ATTEND Physician Assistant
DX: E11.65 Type 2 diabetes mellitus with hyperglycemia (principal); R80.9 Proteinuria, unspecified; I10 Essential (primary) hypertension

== ENCOUNTER → 2019-05-04 | Outpatient (REF) | payer BC ==
[~2019-05-04] MED LIST changes: +CAND4TAB PO; +DOXY-350 PO
[2019-05-04 19:11] LABS: BLOOD UREA NITROGEN 12 MG/DL (7-18); CALCIUM LEVEL 9.3 MG/DL (8.5-10.1); CARBON DIOXIDE LEVEL 29 MEQ/L (21-32); CHLORIDE LEVEL 108 MEQ/L (98-107); CREATININE FOR GFR 0.59 MG/DL (0.55-1.30); GLOMERULAR FILTRATION RATE > 60.0 (>60); GLUCOSE, FASTING 148 MG/DL (70-100); SODIUM LEVEL 141 MEQ/L (136-145)
[2019-05-04 19:26] LABS: HEMOGLOBIN A1c 7.5 %
== END ==
LOC: M SFHCADAM 13:04
PROVIDERS: ATTEND Physician Assistant
DX: E11.65 Type 2 diabetes mellitus with hyperglycemia (principal); I10 Essential (primary) hypertension

== ENCOUNTER 2019-05-14 14:21 | Emergency (ER) | payer BC ==
[~2019-05-14] VITALS: Ht 165.1 cm; Wt 137.9 kg
[~2019-05-14 14:21] MED LIST changes: -CAND4TAB PO; -DOXY-350 PO
[2019-05-14] MEDS ORDERED: DOXY-350 PO (14:31)
[2019-05-14] MEDS ORDERED: CAND4TAB PO (14:31)
[2019-05-14] MEDS ORDERED: methylPREDNISolone INJ 125 MG/2 ML VIAL (J2930) IV ONE (15:00)
[2019-05-14] MEDS: IPRATROPIUM 0.5MG/ALBUTEROL 2.5MG INH SOL UD 3ML (DUONEB)(J7620) NEB PRN ×3 (15:21→17:06)
[2019-05-14 15:27] LABS: BASO # 0.1 10^3/uL (0.0-0.2); BASO % 0.5 % (0.0-1.0); EOS # 0.8 10^3/uL (0.0-0.5); EOS % 4.8 % (0.0-3.0); HEMATOCRIT 43.9 % (36.0-47.0); HEMOGLOBIN 14.7 g/dl (12.0-15.5); LYMPH # 3.7 10^3/uL (1.5-5.0); LYMPH % 21.3 % (24.0-44.0); MEAN CORPUSCULAR HEMOGLOBIN 28.8 pg (27.0-33.0); MEAN CORPUSCULAR HGB CONC 33.5 g/dl (32.0-36.5); MEAN CORPUSCULAR VOLUME 85.9 fl (80.0-96.0); MONO % 5.8 % (0.0-5.0); NEUTROPHILS # 11.7 10^3/uL (1.5-8.5); NEUTROPHILS % 67.2 % (36.0-66.0); PLATELET COUNT, AUTOMATED 369 10^3/uL (150-450); RED BLOOD COUNT 5.11 10^6/uL (4.00-5.40); WHITE BLOOD COUNT 17.5 10^3/uL (4.0-10.0)
[2019-05-14 15:39] LABS: INR 1.03; PROTHROMBIN TIME 13.2 SECONDS (11.8-14.0)
[2019-05-14 15:58] LABS: INFLUENZA A AMPLIFICATION NEGATIVE (NEGATIVE); INFLUENZA B AMPLIFICATION NEGATIVE (NEGATIVE)
[2019-05-14 16:03] LABS: ALBUMIN 3.6 GM/DL (3.2-5.2); ALT/SGPT 23 U/L (12-78); BILIRUBIN,DIRECT < 0.1 MG/DL (0.0-0.2); BILIRUBIN,TOTAL 0.2 MG/DL (0.2-1.0); BLOOD UREA NITROGEN 12 MG/DL (7-18); CALCIUM LEVEL 9.1 MG/DL (8.5-10.1); CARBON DIOXIDE LEVEL 22 MEQ/L (21-32); CHLORIDE LEVEL 108 MEQ/L (98-107); CK-MB VALUE MASS 1.2 NG/ML (<3.6); CPK CREATINE PHOSPHOKINASE 86 U/L (26-192); CREATININE FOR GFR 0.65 MG/DL (0.55-1.30); GLOMERULAR FILTRATION RATE > 60.0 (>60); GLUCOSE, FASTING 120 MG/DL (70-100); POTASSIUM SERUM 4.2 MEQ/L (3.5-5.1); SODIUM LEVEL 139 MEQ/L (136-145); TROPONIN I < 0.02 NG/ML (< 0.10)
[2019-05-14] MEDS ORDERED: ISOVUE-370 76% 100ML VIAL (Q9967) As Ordered ONE (16:27)
--- NOTE | 2019-05-14 17:05 | REPVR ---
EXAM: CT Angiography Chest With Contrast EXAM DATE/TIME: 05/14/2019 4:34 PM CLINICAL HISTORY: 28 years old, female; Cough and shortness of breath; Chest pain; Type not specified; Additional info: Chest tightness, SOB cough TECHNIQUE: Imaging protocol: Computed tomographic angiography of the chest with intravenous contrast. 3D rendering: MIP reconstructed images were created and reviewed. Radiation optimization: All CT scans at this facility use at least one of these dose optimization techniques: automated exposure control; mA and/or kV adjustment per patient size (includes targeted exams where dose is matched to clinical indication); or iterative reconstruction. Contrast material: ISOVUE 370; Contrast volume: 100 ml; Contrast route: IV; COMPARISON: CT ANGIO CHEST 08/16/2018 12:35 PM FINDINGS: Pulmonary arteries: Normal. No pulmonary emboli. Aorta: There is no evidence of thoracic aortic , aneurysm or dissection. Lungs: There a few patchy areas of groundglass opacity bilaterally. This is much less extensive than present on the prior scan. Pleural space: Unremarkable. No pneumothorax. No pleural effusion. Heart: Unremarkable. No cardiomegaly. No pericardial effusion. Liver: There is diffuse hepatic steatosis. Adrenals: There is a left adrenal mass measuring up to 3.7 cm. This is unchanged in size from the prior scan. Density measurements are highly consistent with an adrenal adenoma. Lymph nodes: There is a 12 mm right hilar lymph node. This is smaller than on the prior scan. No larger or progressive lymph nodes. Bones/joints: Unremarkable. No acute fracture. Soft tissues: Unremarkable. IMPRESSION: 1. There are scattered areas of groundglass opacity. These could represent areas of edema or inflammation. There was much more severe disease on the comparison scan. 2. No evidence of pulmonary emboli. 3. Stable 3.7 cm left adrenal adenoma. 4. Extensive hepatic steatosis. Electronically signed by: Holger Crane On 05/14/2019 17:05:16 PM
[2019-05-14 17:30] VITALS: BP 126/67
[2019-05-14] MEDS ORDERED: ALBUTEROL SULFATE 2.5 MG/0.5 ML INH NEB SOLN NEB ONE (17:30)
[2019-05-14] MEDS ORDERED: PRED20TA PO (17:58)
--- NOTE | 2019-05-16 04:21 | ECGEPIP ---
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
--- NOTE | 2019-05-16 12:45 | ED PDOC ---
Post-Departure Follow-Up rosita xavier faxed formal report of cta chest for fu George Yan MD May 16, 2019 12:45
== END 2019-05-14 18:10 | disposition home or self-care (01) ==
LOC: M ED 14:21
DX: J45.901 Unspecified asthma with (acute) exacerbation (principal); E11.9 Type 2 diabetes mellitus without complications; E66.9 Obesity, unspecified; K76.0 Fatty (change of) liver, not elsewhere classified; E27.9 Disorder of adrenal gland, unspecified; F17.200 Nicotine dependence, unspecified, uncomplicated; Z79.4 Long term (current) use of insulin; Z79.899 Other long term (current) drug therapy; Z88.0 Allergy status to penicillin
CPT/HCPCS: 36415; 71275; 80048; 80076; 82550; 82553; 84443; 84484; 85025; 85610; 87502; 93005; 93041; 94640; 94760; 96374; 99285; J2930; Q9967

== ENCOUNTER → 2019-05-25 | Outpatient (CLI) | payer BC ==
[~2019-05-25] MED LIST changes: +CAND4TAB PO; +DOXY-350 PO
[2019-05-25 13:13] LABS: BLOOD UREA NITROGEN 10 MG/DL (7-18); CALCIUM LEVEL 8.8 MG/DL (8.5-10.1); CARBON DIOXIDE LEVEL 25 MEQ/L (21-32); CHLORIDE LEVEL 108 MEQ/L (98-107); CREATININE FOR GFR 0.55 MG/DL (0.55-1.30); GLOMERULAR FILTRATION RATE > 60.0 (>60); GLUCOSE, FASTING 130 MG/DL (70-100); POTASSIUM SERUM 4.1 MEQ/L (3.5-5.1); SODIUM LEVEL 140 MEQ/L (136-145)
--- NOTE | 2019-05-25 21:17 | ECGEPIP ---
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
== END ==
LOC: M LAB 11:46
PROVIDERS: ATTEND Orthopaedic Surgery
DX: Z01.818 Encounter for other preprocedural examination (principal); G56.02 Carpal tunnel syndrome, left upper limb; Z79.899 Other long term (current) drug therapy; E11.9 Type 2 diabetes mellitus without complications

== ENCOUNTER → 2019-06-13 | Outpatient (CLI) | payer BC ==
--- NOTE | 2019-06-13 07:43 | PFTRPT ---
Height: 64.50 Inches Weight: 306.00 Lbs BSA: 2.36 Diagnosis: R06.02 DATE OF STUDY: 06/13/2019 ORDERED BY: Dr. Bland Spirometry: Pre and post bronchodilator study of excellent technical quality. Forced vital capacity normal. FEV1 in proportion. Obstructive index is, therefore, normal. Flow Volume Loop: Expiratory limb of the flow volume loop is normal. No significant bronchodilator response identified. Lung Volumes: Total lung capacity mildly elevated. Residual volume generally in proportion. Diffusing Capacity: Diffusing capacity normal. Hemoglobin: Hemoglobin is mildly reduced at 11.2. Airway Mechanics: Airway resistance and conductance are normal. IMPRESSION: [place] anemia; otherwise, normal study. Please correlate clinically. MTDD
== END ==
LOC: M CARPUL 06:51
PROVIDERS: ATTEND Internal Medicine Pulmonary Disease
DX: D64.9 Anemia, unspecified (principal); R06.02 Shortness of breath

== ENCOUNTER → 2019-06-22 | Outpatient (CLI) | payer BC ==
[~2019-06-22] MED LIST changes: +METHACHOLINE KIT (J7674) INH ONE
--- NOTE | 2019-06-22 08:19 | PFTRPT ---
Height: 64.50 Inches Weight: 306.00 Lbs BSA: 2.36 Diagnosis: R06.02 DATE OF PROCEDURE: 06/22/2019 ORDERED BY: Mumtaz Bland MD INTERPRETATION: Study of excellent technical quality. Under protocol, methacholine was administered. At a dose of 2.5 mg or 13.875 CDUs, a 20% decline in the FEV1 was noted. PC of 2.42 is significant. Flow rates did return to baseline post bronchodilator administration. IMPRESSION: Positive methacholine challenge study. MTDD
== END ==
LOC: M CARPUL 07:21
PROVIDERS: ATTEND Internal Medicine Pulmonary Disease
DX: R06.02 Shortness of breath (principal)
CPT/HCPCS: 94070; J7674

== ENCOUNTER → 2019-07-18 | Outpatient (CLI) | payer BC ==
[~2019-07-18] MED LIST changes: -METHACHOLINE KIT (J7674) INH ONE
--- NOTE | 2019-07-18 09:23 | REP ---
CT chest without contrast: HISTORY: Nonspecific abnormal finding of the lung field. Comparison CT studies are dated August 16, 2018, May 14, 2019, and remote prior CTs are reviewed from [address] FINDINGS: This patient's CT study from December 17, 2012, July 2018, and April 2019 have all shown a variable pattern of perihilar or peribronchovascular ground-glass opacities in the upper and lower lobes. This was most pronounced on August 16, 2018. Today's study shows essentially clear lung fatima without this ground-glass opacity pattern. There is minimal linear fibrosis in the lingula and right lower lobe. No pulmonary mass or nodule is appreciated. Minimal fibrotic changes are seen in the right middle lobe. No endobronchial lesion is seen. No pleural or pericardial effusion is observed. No hilar or mediastinal mass or adenopathy is seen. There is diffuse fatty infiltration of the liver again noted. There is little low density lesion in the left adrenal gland measuring 3.7 cm in diameter consistent with a left adrenal adenoma. This is unchanged except that it is a little larger than on the 2013 study when it measured 3.0 cm. IMPRESSION: Minimal bibasilar linear fibrosis. Benign left adrenal adenoma. Fatty infiltration of the liver. The previously noted ground-glass opacities are not visible today. Electronically Signed by John Wiley MD 07/18/2019 03:31 P
== END ==
LOC: M RAD 06:56
PROVIDERS: ATTEND Internal Medicine Pulmonary Disease
DX: J84.10 Pulmonary fibrosis, unspecified (principal); K76.0 Fatty (change of) liver, not elsewhere classified; D35.02 Benign neoplasm of left adrenal gland

== ENCOUNTER → 2020-01-12 | Outpatient (CLI) | payer BC ==
--- NOTE | 2020-01-12 15:00 | REP ---
OBSTETRIC SONOGRAPHY: HISTORY: Supervision of for anatomy. FINDINGS: Scanning through the gravid uterus demonstrates a single living intrauterine gestation in a cephalic lie. motion is observed, and heart rate is recorded at 150 beats per minute. The placenta is posterior grade 0 without evidence of previa. Amniotic fluid is subjectively normal. Closed cervical length is 3.4 cm. No extrauterine abnormalities observed. Exam quality is inhibited some degree by maternal body habitus. The following anatomic structures are identified and felt to be unremarkable: cranium, choroid plexus, cavum, cerebellum and posterior fossa, lungs, diaphragm, left-sided stomach, abdominal wall cord insertion, three-vessel cord, kidneys, spine, upper and lower extremities. The following anatomic structures are not evaluated due to lie and maternal body habitus: face and profile, four-chamber heart with left and right ventricular outflow tract views, and urinary bladder. BIOMETRY CHART: BPD 4.5 cm = 19 weeks 4 days Head circumference 17.0 cm = 19 weeks 5 days Abdominal circumference 14.1 cm = 19 weeks 3 days Femur length 3.2 cm = 20 weeks 0 days Humeral length 3.2 cm = 20 weeks 5 days Cerebellar diameter 2.0 cm = 19 weeks 0 days Cephalic index normal 0.72, HC/AC ratio normal 1.21, estimated weight 311 grams, 0 pounds 10 ounces, 54th percentile for 19 weeks 4 days. IMPRESSION: Viable single intrauterine gestation at 19 weeks 4 days by today's composite sonographic criteria. SUNDAY by today's sonography, June 03, 2020. anatomic survey is less than complete as above. Electronically Signed by John Wiley MD 01/12/2020 03:11 P
== END ==
LOC: M LRY 12:04
PROVIDERS: ATTEND Nurse Practitioner Family
DX: Z34.81 Encounter for supervision of other normal pregnancy, first trimester (principal)

== ENCOUNTER → 2020-01-17 | Outpatient (REF) | payer BC ==
[2020-01-17 13:26] LABS: HEMATOCRIT 37.5 % (36.0-47.0); HEMOGLOBIN 12.1 g/dl (12.0-15.5); MEAN CORPUSCULAR HEMOGLOBIN 29.7 pg (27.0-33.0); MEAN CORPUSCULAR HGB CONC 32.3 g/dl (32.0-36.5); MEAN CORPUSCULAR VOLUME 91.9 fl (80.0-96.0); PLATELET COUNT, AUTOMATED 355 10^3/uL (150-450); RED BLOOD COUNT 4.08 10^6/uL (4.00-5.40); WHITE BLOOD COUNT 18.7 10^3/uL (4.0-10.0)
[2020-01-17 13:43] LABS: ALBUMIN 2.9 GM/DL (3.2-5.2); ALT/SGPT 24 U/L (12-78); BILIRUBIN,TOTAL 0.2 MG/DL (0.2-1.0); BLOOD UREA NITROGEN 9 MG/DL (7-18); CALCIUM LEVEL 8.8 MG/DL (8.5-10.1); CARBON DIOXIDE LEVEL 25 MEQ/L (21-32); CHLORIDE LEVEL 109 MEQ/L (98-107); CREATININE FOR GFR 0.41 MG/DL (0.55-1.30); FERRITIN 66 NG/ML (8-252); FREE T4 1.06 NG/DL (0.76-1.46); GLOMERULAR FILTRATION RATE > 60.0 (>60); GLUCOSE, FASTING 106 MG/DL (70-100); IRON (FE) 64 UG/DL (50-170); PERCENT SATURATION 17.2 % (13.2-45.0); POTASSIUM SERUM 4.6 MEQ/L (3.5-5.1); SODIUM LEVEL 140 MEQ/L (136-145); THYROID STIMULATING HORMONE 0.693 uIU/ML (0.358-3.740); TOTAL IRON BINDING CAPACITY 372 UG/DL (250-450); TOTAL PROTEIN 6.2 GM/DL (6.4-8.2)
[2020-01-17 13:53] LABS: HEMOGLOBIN A1c 6.9 %
== END ==
LOC: M SFHCADAM 07:44
PROVIDERS: ATTEND Physician Assistant
DX: E11.9 Type 2 diabetes mellitus without complications (principal); I10 Essential (primary) hypertension; Z3A.20 20 weeks gestation of pregnancy; R80.9 Proteinuria, unspecified

== ENCOUNTER → 2020-01-17 | Outpatient (REF) | payer BC ==
[2020-01-17 18:57] LABS: HEMATOCRIT 35.8 % (36.0-47.0); HEMOGLOBIN 11.8 g/dl (12.0-15.5); MEAN CORPUSCULAR HEMOGLOBIN 30.2 pg (27.0-33.0); MEAN CORPUSCULAR VOLUME 91.6 fl (80.0-96.0); PLATELET COUNT, AUTOMATED 341 10^3/uL (150-450); RED BLOOD COUNT 3.91 10^6/uL (4.00-5.40); WHITE BLOOD COUNT 17.5 10^3/uL (4.0-10.0)
[2020-01-17 19:52] LABS: HCG, SERUM QUANTITATIVE 7021 MIU/ML; HIV 1&2 SCREEN CENTAUR NEGATIVE (NEGATIVE)
[2020-01-19 10:46] LABS: HEPATITIS B SURFACE ANTIGEN NEGATIVE (NEGATIVE)
== END ==
LOC: M LAB REF 16:42
PROVIDERS: ATTEND Obstetrics & Gynecology
DX: Z32.01 Encounter for pregnancy test, result positive (principal)

== ENCOUNTER → 2020-01-25 | Outpatient (CLI) | payer BC ==
--- NOTE | 2020-01-25 19:34 | REP ---
Clinical: Anatomical evaluation. Comparison: 01/12/2020 . Findings: Examination demonstrates a single live intrauterine in breech presentation. motion is identified by technologist. Placenta is noted posterior and grade zero without evidence for placenta previa or abruption. Amniotic fluid volume is normal. Cervix measures 4.2 cm in length and appears closed. No evidence for nuchal cord. Gestational age by LMP 21 weeks 4 days with 06/02/2020 . Gestational age by current measurements 21 weeks 2 days with 06/04/2020 . FHR equals 142 beats per minute. Estimated weight 427 grams ( 49th percentile). Anatomical assessment demonstrates normal structures including facial features and bladder. Suboptimal evaluation of the heart and ventricular outflow tracts again noted. Impression: Single live intrauterine in breech presentation demonstrating appropriate interval growth. Continued limited evaluation of the heart and ventricular outflow tracts.
== END ==
LOC: M WHC 14:04
PROVIDERS: ATTEND Obstetrics & Gynecology
DX: Z36.89 Encounter for other specified antenatal screening (principal); Z3A.21 21 weeks gestation of pregnancy

== ENCOUNTER → 2020-02-15 | Outpatient (REF) | payer BC ==
[~2020-02-15] MED LIST changes: +APAP325T4 PO; +KEFL500C17 PO; +LABE20TAB PO; +PERCOCET PO; +PRENTAB53 PO
[2020-02-15 12:45] LABS: HEMATOCRIT 35.3 % (36.0-47.0); HEMOGLOBIN 11.8 g/dl (12.0-15.5); MEAN CORPUSCULAR HEMOGLOBIN 29.9 pg (27.0-33.0); MEAN CORPUSCULAR HGB CONC 33.4 g/dl (32.0-36.5); MEAN CORPUSCULAR VOLUME 89.6 fl (80.0-96.0); PLATELET COUNT, AUTOMATED 374 10^3/uL (150-450); RED BLOOD COUNT 3.94 10^6/uL (4.00-5.40); WHITE BLOOD COUNT 17.8 10^3/uL (4.0-10.0)
== END ==
LOC: M LAB REF 12:00
PROVIDERS: ATTEND Obstetrics & Gynecology
DX: Z34.82 Encounter for supervision of other normal pregnancy, second trimester (principal)
CPT/HCPCS: 85027; 86850; 86901; J2790

== ENCOUNTER → 2020-02-20 | Outpatient (CLI) | payer BC ==
[~2020-02-20] MED LIST changes: -APAP325T4 PO; -KEFL500C17 PO; -LABE20TAB PO; -PERCOCET PO; -PRENTAB53 PO
[2020-02-20 12:11] LABS: ALBUMIN 2.8 GM/DL (3.2-5.2); ALT/SGPT 18 U/L (12-78); BILIRUBIN,TOTAL 0.2 MG/DL (0.2-1.0); BLOOD UREA NITROGEN 8 MG/DL (7-18); CALCIUM LEVEL 9.6 MG/DL (8.5-10.1); CARBON DIOXIDE LEVEL 23 MEQ/L (21-32); CHLORIDE LEVEL 111 MEQ/L (98-107); CREATININE FOR GFR 0.44 MG/DL (0.55-1.30); FREE T3 2.9 PG/ML (2.2-4.0); FREE T4 0.99 NG/DL (0.76-1.46); GLOMERULAR FILTRATION RATE > 60.0 (>60); GLUCOSE, FASTING 82 MG/DL (70-100); SODIUM LEVEL 142 MEQ/L (136-145); TOTAL PROTEIN 6.2 GM/DL (6.4-8.2)
[2020-02-20 12:14] LABS: HEMOGLOBIN A1c 6.7 %
[2020-02-20 12:19] LABS: CREATININE, URINE 78.1 MG/DL; URINE TOTAL PROTEIN 10.2 MG/DL (0-12)
[2020-02-20 16:27] LABS: CREATININE 24 HOUR, URINE 1327.7 MG/24HR (600-1800); TOTAL PROTEIN 24 HOUR URINE 173.4 MG/24HR (50-150)
== END ==
LOC: M LAB 10:28
PROVIDERS: ATTEND Obstetrics & Gynecology
DX: Z34.82 Encounter for supervision of other normal pregnancy, second trimester (principal); Z36.89 Encounter for other specified antenatal screening

== ENCOUNTER → 2020-05-18 | Outpatient (CLI) | payer BC ==
[~2020-05-18] MED LIST changes: +APAP325T4 PO; +KEFL500C17 PO; +LABE20TAB PO; +PERCOCET PO; +PRENTAB53 PO
== END ==
LOC: M LABSMTC 08:09
PROVIDERS: ATTEND Anesthesiology
DX: Z01.812 Encounter for preprocedural laboratory examination (principal); Z20.828 Contact with and (suspected) exposure to other viral communicable diseases
CPT/HCPCS: C9803; U0003

== ENCOUNTER 2020-05-22 05:31 | Inpatient (IN) | payer BC ==
[2020-05-22] VITALS (13 sets, daily range): BP systolic 138–172; BP diastolic 73–96
[~2020-05-22] VITALS: Ht 165.1 cm; Wt 146.0 kg
[~2020-05-22 05:31] MED LIST changes: -KEFL500C17 PO; -LABE20TAB PO; -PERCOCET PO
[2020-05-22] MEDS ORDERED: LR 1,000 ML IV SCH ×2 (05:43→09:30)
[2020-05-22] MEDS ORDERED: BICITRA 30ML SOLN UDC PO ONE (05:45)
[2020-05-22] MEDS ORDERED: CLINDAMYCIN 900 MG in IV 1 EA IV ONE (06:00)
[2020-05-22] MEDS ORDERED: NS 500 ML IV ONE (06:00)
[2020-05-22 06:37] LABS: HEMATOCRIT 36.1 % (36.0-47.0); HEMOGLOBIN 11.9 g/dl (12.0-15.5); MEAN CORPUSCULAR HEMOGLOBIN 29.5 pg (27.0-33.0); MEAN CORPUSCULAR VOLUME 89.4 fl (80.0-96.0); PLATELET COUNT, AUTOMATED 382 10^3/uL (150-450); RED BLOOD COUNT 4.04 10^6/uL (4.00-5.40); WHITE BLOOD COUNT 21.2 10^3/uL (4.0-10.0)
[2020-05-22 06:54] LABS: BLOOD UREA NITROGEN 14 MG/DL (7-18); CALCIUM LEVEL 8.7 MG/DL (8.5-10.1); CARBON DIOXIDE LEVEL 20 MEQ/L (21-32); CHLORIDE LEVEL 113 MEQ/L (98-107); CREATININE FOR GFR 0.49 MG/DL (0.55-1.30); GLOMERULAR FILTRATION RATE > 60.0 (>60); GLUCOSE, FASTING 83 MG/DL (70-100); SODIUM LEVEL 142 MEQ/L (136-145)
[2020-05-22 06:55] LABS: ALBUMIN 2.4 GM/DL (3.2-5.2); ALT/SGPT 24 U/L (12-78); BILIRUBIN,TOTAL 0.2 MG/DL (0.2-1.0)
[2020-05-22] MEDS ORDERED: fentaNYL 100 MCG/2 ML INJECTION (J3010) As Ordered ONE (07:13)
[2020-05-22] MEDS ORDERED: dexameTHASONE 4 MG/ML 1ML VIAL (J1100 PER 1MG) As Ordered ONE (07:13)
[2020-05-22] MEDS ORDERED: OXYTOCIN INJ 10 UNITS/ML VIAL (J2590) As Ordered ONE (07:13)
[2020-05-22] MEDS ORDERED: ONDANSETRON 4MG/2ML VIAL As Ordered ONE (07:13)
[2020-05-22] MEDS ORDERED: MORPHINE PRES-FREE INJ 10 MG/10 ML VIAL (J2274) As Ordered ONE (07:13)
[2020-05-22] MEDS ORDERED: OXYTOCIN DRIP 30 UNITS in IV 1 EA IV SCH (07:23)
[2020-05-22] MEDS: HumaLOG INSULIN (NovoLOG) PER UNIT SC SCH ×3 (07:30→17:12)
[2020-05-22] MEDS ORDERED: RHOGAM 300 MCG (1500 IU) INJ (J2790) IM SCH (07:30)
[2020-05-22] MEDS ORDERED: MEASLES,MUMPS,RUBELLA VACCINE INJ (MMR-II) (90707) SC SCH (07:30)
[2020-05-22] MEDS ORDERED: MOM 30ML SUSPENSION UDC PO PRN (07:30)
[2020-05-22] MEDS ORDERED: NALBUPHINE HCL 10 MG/ML AMP (J2300) IV PRN (07:48)
[2020-05-22] MEDS ORDERED: NALOXONE INJ 0.4MG/1ML VIAL (J2310 PER 1MG) IV PRN ×2 (07:48)
[2020-05-22] MEDS ORDERED: diphenhydrAMINE 50MG/ML VIAL (J1200) IV PRN (07:48)
[2020-05-22] MEDS ORDERED: METOCLOPRAMIDE INJ 10MG/2ML VIAL (J2765 PER 1) IV PRN ×2 (07:48→09:30)
[2020-05-22] MEDS ORDERED: ONDANSETRON 4MG/2ML VIAL IV PRN ×2 (07:48→09:30)
[2020-05-22] MEDS ORDERED: PHENYLephrine HCL 500 MCG/5 ML (100MCG/ML) SYRINGE (J2370) As Ordered ONE (08:31)
[2020-05-22] MEDS ORDERED: KETOROLAC 60MG 2ML VIAL As Ordered ONE (08:31)
[2020-05-22] MEDS: DOCUSATE SODIUM 100 MG CAP PO SCH ×2 (09:00→20:58)
[2020-05-22] MEDS: PRENATAL VITAMINS CHEWABLE TABLET PO SCH (09:00)
[2020-05-22] MEDS ORDERED: fentaNYL 100 MCG/2 ML INJECTION (J3010) IV PRN (09:30)
[2020-05-22] MEDS ORDERED: BOOSTRIX/ADACEL VACCINE (DIPHTH/PERTUSS/ACELL/TETANUS) 0.5ML SYR IM ONE (12:00)
[2020-05-22] MEDS: KETOROLAC 30 MG/ML 1ML VIAL IV SCH ×2 (14:11→19:34)
[2020-05-22] MEDS: HEPARIN SOD (PORCINE) 5000UNITS/ML 1ML VIAL/SYRINGE SQ SCH (14:35)
[2020-05-22] MEDS: LABETALOL 200 MG TAB PO SCH (20:59)
[2020-05-23] VITALS (7 sets, daily range): BP systolic 145–164; BP diastolic 66–82
[2020-05-23] MEDS: KETOROLAC 30 MG/ML 1ML VIAL IV SCH (01:39)
[2020-05-23] MEDS: HEPARIN SOD (PORCINE) 5000UNITS/ML 1ML VIAL/SYRINGE SQ SCH ×2 (01:40→13:23)
[2020-05-23 07:27] LABS: HEMATOCRIT 30.3 % (36.0-47.0); PLATELET COUNT, AUTOMATED 295 10^3/uL (150-450); RED BLOOD COUNT 3.33 10^6/uL (4.00-5.40); WHITE BLOOD COUNT 15.1 10^3/uL (4.0-10.0)
[2020-05-23] MEDS: DOCUSATE SODIUM 100 MG CAP PO SCH ×2 (08:19→21:09)
[2020-05-23] MEDS: PRENATAL VITAMINS CHEWABLE TABLET PO SCH (08:19)
[2020-05-23] MEDS: LABETALOL 200 MG TAB PO SCH ×2 (08:19→21:09)
[2020-05-23] MEDS: PERCOCET 5MG/325MG TAB PO PRN ×2 (08:20→16:05)
[2020-05-23] MEDS: HumaLOG INSULIN (NovoLOG) PER UNIT SC SCH ×3 (08:22→17:30)
[2020-05-23] MEDS: IBUPROFEN 800 MG TAB PO SCH ×2 (10:55→18:35)
[2020-05-24] MEDS: IBUPROFEN 800 MG TAB PO SCH ×2 (02:00→09:26)
[2020-05-24] MEDS: PERCOCET 5MG/325MG TAB PO PRN (02:02)
[2020-05-24] MEDS: HEPARIN SOD (PORCINE) 5000UNITS/ML 1ML VIAL/SYRINGE SQ SCH (02:22)
[2020-05-24 02:30] VITALS: BP 165/82
[2020-05-24 06:00] VITALS: BP 159/77
[2020-05-24] MEDS: HumaLOG INSULIN (NovoLOG) PER UNIT SC SCH (07:26)
[2020-05-24] MEDS ORDERED: LABE20TAB PO (07:35)
[2020-05-24] MEDS ORDERED: PERCOCET PO (07:35)
--- NOTE | 2020-05-24 07:43 | OBDS ---
[facility] Obstetrical Discharge Sum. Obstetrical Discharge Summary [employer] Cork Insulator/Provider: Siva Jimenez DO Date: May 24, 2020 : 5 Term: 1 Pre-term: 0 Abortions: 4 Livin VDRL: Non-Reactive Rh: Negative Rubella: Immune Sex: Female Infant Weight: pounds (7), ounces (14) Anesthesia: Regional Anesthesia A/P, Post Course List any complications Admission diagnosis:Term Breech presentation; Type II diabetes; Chronic hypertention ; Morbid obesity. Discharge diagnosis: Same Condition at Discharge: [stable] Discharge Instructions: [May continue outpatient meds. Labetalol 300mg BID added. Pt to follow up with her PCP CHERIE for sugar and BP control] Activity: [As tolerated] Diet: [Regular] Medications: [see list] Follow-up: [2 weeks for incision check; F/u with PCP CHERIE] Other: [Keep incision clean and dry. ABD or pad to incision are at all times.] Siva Jimenez DO May 24, 2020 07:43
[2020-05-24] MEDS ORDERED: BOOSTRIX/ADACEL VACCINE (DIPHTH/PERTUSS/ACELL/TETANUS) 0.5ML SYR IM ONE (09:00)
[2020-05-24 09:27] VITALS: BP 159/77
[2020-05-24] MEDS: DOCUSATE SODIUM 100 MG CAP PO SCH (09:27)
[2020-05-24] MEDS: PRENATAL VITAMINS CHEWABLE TABLET PO SCH (09:27)
[2020-05-24] MEDS: LABETALOL 200 MG TAB PO SCH (09:27)
--- NOTE | 2020-06-03 08:00 | RO ---
DATE OF OPERATION: 05/22/2020 Lou is a 29-year-old female who is at term with a breech presentation. She does have a history of type 2 diabetes and chronic hypertension. She is not on any hypertensive meds but is on insulin for a type 2 diabetic which has been well controlled during her . After extensive counseling in the office, the decision was made to proceed with a low transverse section. PREOPERATIVE DIAGNOSES: 1. Term , breech presentation. 2. Type 2 diabetic, well controlled on insulin during this . 3. Chronic hypertension, not on any medications. POSTOPERATIVE DIAGNOSES: 1. Term , breech presentation. 2. Type 2 diabetic, well controlled on insulin during this . 3. Chronic hypertension, not on any medications. PROCEDURE: Primary low transverse section, breech extraction. ANESTHESIA: Spinal. SURGEON: Siva Jimenez DO SENIOR CLINICAL DATA COORDINATOR: Dr. Skelton COMPLICATIONS: None. ESTIMATED BLOOD LOSS: 600 mL. FINDINGS: Live female in footling breech presentation; 9/9; weight 7 pounds 14 ounces. Normal-appearing tubes and ovaries. PROCEDURE: After obtaining informed consent, the patient was taken to the operating room. Once spinal anesthetic was found to be adequate, she was then draped and prepped in the usual sterile fashion in the supine position. At this point, with the help of Dr. Skelton, my assistant community manager, a Pfannenstiel incision was made. The incision was carried down to the fascia. The fascia was incised in the midline fashion and carried through laterally. We then entered the peritoneal cavity. A Mobius skin retractor was placed. A low transverse uterine incision was then made. The infant was delivered via breech extraction in atraumatic fashion. The nose and mouth bulb suctioned, the cord doubly clamped and cut and was handed over to the waiting warmer. Cord blood was sent. Placenta removed manually. Uterus cleared of all clots and debris, and the uterine incision was then repaired in two separate layers of 0 Vicryl suture. The pelvis was copiously irrigated with normal saline and suctioned out. We then turned our attention to the peritoneum, which was closed in a running fashion using 2-0 Vicryl. The fascia was closed in two separate segments of 0 Vicryl sutures. All superficial bleeders coagulated and the skin was reapproximated in subcuticular fashion using 3-0 Vicryl on a Jose. Steri-Strips placed. The patient tolerated the procedure well. She was then transferred to the recovery room in stable condition. GRACIE
== END 2020-05-24 11:30 | disposition home or self-care (01) | DRG 540 ==
LOC: M LDI 05:31 → M OBS 10:01
PROVIDERS: ADMIT Obstetrics & Gynecology; ATTEND Obstetrics & Gynecology
PROC: 10D00Z1 Extraction of Products of Conception, Low, Open Approach (ICD-10-PCS; principal; 2020-05-22 07:30)
DX: O32.1XX0 Maternal care for breech presentation, not applicable or unspecified (principal); O24.32 Unspecified pre-existing diabetes mellitus in childbirth; E66.01 Morbid (severe) obesity due to excess calories; O10.02 Pre-existing essential hypertension complicating childbirth; O99.214 Obesity complicating childbirth; Z37.0 Single live birth; E11.9 Type 2 diabetes mellitus without complications; Z3A.39 39 weeks gestation of pregnancy

== ENCOUNTER 2020-06-01 21:13 | Emergency (ER) | payer BC ==
[~2020-06-01] VITALS: Ht 165.1 cm; Wt 132.8 kg
[~2020-06-01 21:13] MED LIST changes: +LABE20TAB PO; +PERCOCET PO
--- NOTE | 2020-06-01 22:12 | REPVR ---
PROCEDURE INFORMATION: Exam: US Pelvis Limited, Transabdominal Exam date and time: 06/01/2020 10:05 PM Age: 29 years old Clinical indication: Pelvic pain; Prior surgery; Surgery date: <1 month; Surgery type: C section; Additional info: Wound abscess ? TECHNIQUE: Imaging protocol: Real-time transabdominal pelvic ultrasound with image documentation. Limited exam. COMPARISON: CT Pelvis with contrast 11/25/2014 2:06 AM FINDINGS: Soft tissues: Imaging over the incision site from prior cyst tear in section demonstrates marked soft tissue edema. There is no evidence of a localized fluid collection or abscess. IMPRESSION: Imaging over the incision site from prior cyst tear in section demonstrates marked soft tissue edema. There is no evidence of a localized fluid collection or abscess. Electronically signed by: Darryn Russell On 06/01/2020 22:12:15 PM
[2020-06-01] MEDS ORDERED: KEFL500C17 PO (22:27)
[2020-06-01] MEDS ORDERED: CEPHALEXIN 500 MG CAP PO ONE (22:30)
[2020-06-01 22:48] VITALS: BP 145/85
== END 2020-06-01 22:49 | disposition home or self-care (01) ==
LOC: M ED 21:13
DX: L76.34 Postprocedural seroma of skin and subcutaneous tissue following other procedure (principal); E11.9 Type 2 diabetes mellitus without complications; I10 Essential (primary) hypertension; F17.200 Nicotine dependence, unspecified, uncomplicated; Z79.899 Other long term (current) drug therapy; Z88.0 Allergy status to penicillin; Z88.6 Allergy status to analgesic agent; Z91.040 Latex allergy status

== ENCOUNTER → 2020-10-24 | Outpatient (REF) | payer BC ==
[~2020-10-24] MED LIST changes: -CLIN150C14 PO; +CLIN150C15 PO; +KEFL500C17 PO
[2020-10-24 13:01] LABS: HEMATOCRIT 42.6 % (36.0-47.0); HEMOGLOBIN 13.3 g/dl (12.0-15.5); MEAN CORPUSCULAR HEMOGLOBIN 27.7 pg (27.0-33.0); MEAN CORPUSCULAR HGB CONC 31.2 g/dl (32.0-36.5); MEAN CORPUSCULAR VOLUME 88.6 fl (80.0-96.0); PLATELET COUNT, AUTOMATED 391 10^3/uL (150-450); RED BLOOD COUNT 4.81 10^6/uL (4.00-5.40); WHITE BLOOD COUNT 14.1 10^3/uL (4.0-10.0)
[2020-10-24 13:19] LABS: HEMOGLOBIN A1c 6.8 %
[2020-10-24 13:34] LABS: ALBUMIN 3.9 GM/DL (3.2-5.2); ALT/SGPT 26 U/L (12-78); BILIRUBIN,TOTAL 0.2 MG/DL (0.2-1.0); BLOOD UREA NITROGEN 16 MG/DL (7-18); CALCIUM LEVEL 9.7 MG/DL (8.5-10.1); CARBON DIOXIDE LEVEL 28 MEQ/L (21-32); CHLORIDE LEVEL 107 MEQ/L (98-107); CREATININE FOR GFR 0.66 MG/DL (0.55-1.30); FREE T4 1.05 NG/DL (0.76-1.46); GLOMERULAR FILTRATION RATE > 60.0 (>60); GLUCOSE, FASTING 138 MG/DL (70-100); SODIUM LEVEL 140 MEQ/L (136-145); THYROID STIMULATING HORMONE 0.849 uIU/ML (0.358-3.740); TOTAL PROTEIN 6.9 GM/DL (6.4-8.2)
[2020-10-24 13:57] LABS: MAU/CREAT RATIO 336.4 MCG/MG (0.0-30.0)
== END ==
LOC: M SFHCADAM 09:35
PROVIDERS: ATTEND Physician Assistant
DX: E11.9 Type 2 diabetes mellitus without complications (principal); I10 Essential (primary) hypertension

== ENCOUNTER → 2021-05-26 | Outpatient (REF) | payer BC ==
[~2021-05-26] MED LIST changes: -CLIN150C15 PO; +CLIN150C17 PO
[2021-05-26 15:30] LABS: HEMOGLOBIN A1c 9.7 %
[2021-05-26 15:37] LABS: ALBUMIN 3.3 GM/DL (3.2-5.2); ALT/SGPT 47 U/L (12-78); BILIRUBIN,TOTAL 0.3 MG/DL (0.2-1.0); BLOOD UREA NITROGEN 8 MG/DL (7-18); CALCIUM LEVEL 9.1 MG/DL (8.5-10.1); CARBON DIOXIDE LEVEL 27 MEQ/L (21-32); CHLORIDE LEVEL 106 MEQ/L (98-107); CREATININE FOR GFR 0.66 MG/DL (0.55-1.30); GLOMERULAR FILTRATION RATE > 60.0 (>60); GLUCOSE, FASTING 200 MG/DL (70-100); POTASSIUM SERUM 4.6 MEQ/L (3.5-5.1); SODIUM LEVEL 139 MEQ/L (136-145); TOTAL PROTEIN 6.5 GM/DL (6.4-8.2)
== END ==
LOC: M SFHCADAM 09:37
PROVIDERS: ATTEND Family Medicine
DX: E11.9 Type 2 diabetes mellitus without complications (principal); I10 Essential (primary) hypertension; E66.01 Morbid (severe) obesity due to excess calories; F32.1 Major depressive disorder, single episode, moderate

== ENCOUNTER 2021-06-14 02:41 | Emergency (ER) | payer BC ==
[~2021-06-14] VITALS: Ht 165.1 cm; Wt 143.2 kg
--- OUTSIDE RECORDS SUMMARY | 2021-06-14 02:54 | CCD ---
Author Author [facility] Organization [facility] Address Unknown Phone Unavailable Care Team Providers Care Jewelry Sorter Name Role Phone Pavithra Melendez Unavailable PROBLEMS Type Condition ICD9-CM Code QOE19-RI Code Onset Dates Condition S tatus W/U Status Risk SNOMED Code Notes Problem Morbid obesity E66.01 Active confirmed 55276 6002 Problem Microalbuminuria R80.9 Active confirmed 312 593634 Problem [facility]CI current use of insulin Z79.4 Active conf irmed 935182783 Problem Grief reaction F43.20 Active confirmed 05193 5009 Problem Type 2 diabetes mellitus with hyperglycemia E11.65 Active confirmed 887053216 Problem Bilateral carpal tunnel syndrome G56.03 Active conf irmed 30551160 Problem Primary insomnia F51.01 Active confirmed 397 2004 Problem Anxiety F41.9 Active confirmed 11682545 Problem Menorrhagia with regular cycle N92.0 Active confir med 974918463 Problem Essential hypertension I10 Active confirmed 88678910 Problem Current moderate episode of major depressive disorder without prior episode F32.1 Active confirmed 23853317 Problem Cigarette nicotine dependence in remission F17.211 Active confirmed 006083799 Problem Moderate persistent asthma with acute exacerbation J45.41 Active confirmed 667658061065535 Problem [facility] (current) use of insulin Z79.4 Activ e confirmed 438816469 Problem Type 2 diabetes mellitus without complications E11 .9 Active confirmed 479325123 Problem Mild intermittent asthma without complication J45. 20 Active confirmed 880058161 ALLERGIES Allergen (clinical drug ingredient) Drug/Non Drug Allergy do cumented on EMR Reaction Allergy Type Onset Date Status alogliptin Alogliptin Benzoate([facility] Code:[address]-40) GI/achines s Drug Allergy Active lisinopril Lisinopril([facility] Code:[address]-14) Very High BP per patient report Drug Allergy Active dulaglutide Trulicity([facility] Code:[address]-53) heart racing Drug Aller gy Active metformin Metformin HCl([facility] Code:[address]-14) kidney pain Drug All ergy Active Penicillin (For Allergies Use Only) throat swelling Drug A llergy Active ENCOUNTERS from 1988 to 2021-06-03 Encounter Location Date Provider Diagnosis [facility] [address] [place] [address] May, Pavithra Wettergiovannihn IMMUNIZATIONS Vaccine Route Administration Date Status Influenza 6mo & up Fluzone IM Intramuscular Aug 19, 2018 Admi nistered SOCIAL HISTORY Tobacco Use: Social History Observation Description Date Details (start date - stop date) Former Smoker Sex Assigned At : Social History Observation Description Sex Assigned At Unknown Education: Question Answer Notes Level of Education: Finished High School Audit Question Answer Notes Total Score: 2 Interpretation: Alcohol Education Language: Question Answer Notes Languages spoken: Mauritian Presybeterian: Question Answer Notes Presybeterian 08 Sabianist Sexual Hx: Question Answer Notes Had sex in the last 12 months (vaginal, oral, or anal)? Yes LMP: 10/06/17 Have you ever had an STD? No with Men only Use protection? No Drug and Alcohol Question Answer Notes Total Score: 0 Interpretation: No problems reported Alcohol Screening: Question Answer Notes Did you have a drink containing alcohol in the past year? Ye s Points 2 Interpretation Negative How often did you have six or more drinks on one occas ion in the past year? Never (0 points) How many drinks did you have on a typica l day when you were drinking in the past year? 3 or 4 (1 point) How often did you have a drink containing alcohol in t he past year? Monthly or less (1 point) BMI Care Goal Follow-Up Question Answer Notes Above Normal BMI Follow-Up Dietary management educatio n, guidance, and counseling Tobacco Use: Question Answer Notes Are you a: former smoker How long has it been since you last smoked? < 1 month REASON FOR REFERRAL No Information VITAL SIGNS No information MEDICATIONS Medication SIG (Take, Route, Frequency, Duration) Notes Start Da te End Date Status HumaLOG 100 UNIT/ML 25 units Subcutaneous bid Active Prena1 1.4 MG 1 tablet Orally Once a day for 30 day(s) Not-Taking Multi Vitamin Daily - 1 tablet Orally Once a day for 30 day(s) Active Candesartan Cilexetil 8 MG 1 tablet Orally Once a day for 30 day (s) Jan, Active Toujeo SoloStar 300 UNIT/ML 50 Subcutaneous twice a day for 30 days Active Blood Glucose Test - as directed In Vitro DX:E11. 65 three times daily as needed for 25 days Sep, Active Pen [place] 1/2" 29G X 12MM as directed dx:e11.65 Daily for 90 d ay(s) Oct, Active Blood Glucose System Marcus - as directed DX:E11.65 as directed for 99 months Sep, Active Lancets - as directed DX:E11.65 three times daily as neede d for 30 day(s) Sep, Active Insulin Syringe 30G X 1/2 as directed sublingually thr ee times daily for 90 day(s) Jul, Active metFORMIN HCl 500 MG 2 tablet with meals Orally Twice a day Active Albuterol Sulfate HFA 108 (90 Base) MCG/ACT 1 puff as needed Inhalation every 4 hrs Bland Active PROCEDURES No Information RESULTS No Results REASON FOR VISIT New Refill Request MEDICAL (GENERAL) HISTORY Type Description Date Medical History Diabetes Type 2 with microalbuminuria Medical History Morbid Obesity Medical History Former Smoker - Quit 2017 Medical History asthma--admitted 08/[address] fatty liver CT 08/16 Medical History benign left adrenal adenoma CT 08/16 Medical History depression Surgical History tonsillectomy Surgical History adenoidectomy Surgical History fracture repair-right thumb 2016 Surgical History C section 05/22/2020 Hospitalization History high glucose 2015 Hospitalization History pneumonia 07/2018 Goals Section No Information Health Concerns No Information MEDICAL EQUIPMENT No Information MENTAL STATUS No Information FUNCTIONAL STATUS No Information ASSESSMENTS No Information PLAN OF TREATMENT Medication Medication Name Sig Start Date Stop Date HumaLOG 100 UNIT/ML 25 units Subcutaneous bid Insulin Syringe 30G X 1/2 as directed sublingually thr ee times daily for 90 day(s) Jul, Toujeo SoloStar 300 UNIT/ML 50 Subcutaneous twice a day for 30 d ays metFORMIN HCl 500 MG 2 tablet with meals Orally Twice a day Next Appt Details Provider Name:Pavithra Melendez, 2020-12 - 09:00:00 AM, [address], , [place], [address], Insurance Providers Payer Name Payer Address Payer Phone Insured Name Patient Relati onship to Insured Coverage Start Date Coverage End Date STEF WHITNEY PPO [phone] [facility]EE[facility] [facility] [place] [address] MARYBETH BAHENA self
--- OUTSIDE RECORDS SUMMARY | 2021-06-14 02:54 | CCD ---
Author Author [facility] Organization [facility] Address Unknown Phone Unavailable Care Team Providers Care Clinic Physician Name Role Phone Pavithra Melendez Unavailable PROBLEMS Type Condition ICD9-CM Code [id number] Code Onset Dates Condition S tatus W/U Status Risk SNOMED Code Notes Problem Morbid obesity E66.01 Active confirmed 93798 6002 Problem Microalbuminuria R80.9 Active confirmed 312 119171 Problem [facility] current use of insulin Z79.4 Active conf irmed 963942925 Problem Grief reaction F43.20 Active confirmed 78716 5009 Problem Type 2 diabetes mellitus with hyperglycemia E11.65 Active confirmed 132531821 Problem Bilateral carpal tunnel syndrome G56.03 Active conf irmed 07821200 Problem Primary insomnia F51.01 Active confirmed 397 2004 Problem Anxiety F41.9 Active confirmed 03227748 Problem Menorrhagia with regular cycle N92.0 Active confir med 165673863 Problem Essential hypertension I10 Active confirmed 62662635 Problem Current moderate episode of major depressive disorder without prior episode F32.1 Active confirmed 75681834 Problem Cigarette nicotine dependence in remission F17.211 Active confirmed 726886570 Problem Moderate persistent asthma with acute exacerbation J45.41 Active confirmed 411067116526011 Problem [facility] (current) use of insulin Z79.4 Activ e confirmed 955149405 Problem Type 2 diabetes mellitus without complications E11 .9 Active confirmed 337163042 Problem Mild intermittent asthma without complication J45. 20 Active confirmed 919225832 ALLERGIES Allergen (clinical drug ingredient) Drug/Non Drug Allergy do cumented on EMR Reaction Allergy Type Onset Date Status alogliptin Alogliptin Benzoate([facility] Code:[address]-85) GI/achines s Drug Allergy Active lisinopril Lisinopril([facility] Code:[address]-51) Very High BP per patient report Drug Allergy Active dulaglutide Trulicity([facility] Code:[address]-93) heart racing Drug Aller gy Active metformin Metformin HCl([facility] Code:[address]-85) kidney pain Drug All ergy Active Penicillin (For Allergies Use Only) throat swelling Drug A llergy Active ENCOUNTERS from 1988 to 2021-03-26 Encounter Location Date Provider Diagnosis [facility] [address] [place] [id number] Feb, Pavithra Wetterhahn Essential hypertension I10 IMMUNIZATIONS Vaccine Route Administration Date Status Influenza [...] Education Language: Question Answer Notes Languages spoken: Estonian Adventism: Question Answer Notes Adventism 08 Mormonism Sexual Hx: Question Answer Notes Had sex [...] Notes Start Da te End Date Status Insulin Syringe 30G X 1/2 as directed sublingually thr ee times daily for 90 day(s) Jul, Active HumaLOG 100 UNIT/ML 25 units Subcutaneous bid Active Blood Glucose System Marcus - as directed DX:E11.65 as directed for 99 months Sep, Active Lancets - as directed DX:E11.65 three times daily as neede d for 30 day(s) Sep, Active Pen [place] 1/2" 29G X 12MM as directed dx:e11.65 Daily for 90 d ay(s) Oct, Active Albuterol Sulfate HFA 108 (90 Base) MCG/ACT 1 puff as needed Inhalation every 4 hrs Active metFORMIN HCl 500 MG 2 tablet with meals Orally Twice a day Active Prena1 1.4 MG 1 tablet Orally Once a day for 30 day(s) Not-Taking Multi Vitamin Daily - 1 tablet Orally Once a day for 30 day(s) Active Toujeo SoloStar 300 UNIT/ML 90 units Subcutaneous Daily for 40 Active Candesartan Cilexetil 8 MG 1 tablet Orally Once a day for 30 day (s) Jan, Active Blood Glucose Test - as directed In Vitro DX:E11. 65 three times daily as needed for 25 days Sep, Active PROCEDURES No Information RESULTS No Results REASON FOR VISIT refill MEDICAL (GENERAL) HISTORY Type Description Date Medical [...] C section 05/22/2020 Hospitalization History high glucose 2016 Hospitalization History pneumonia 07/2018 Goals Section No Information Health Concerns No Information MEDICAL EQUIPMENT No Information MENTAL STATUS No Information FUNCTIONAL STATUS No Information ASSESSMENTS Encounter Date Diagnosis Assessment Notes Treatment Notes Treatm ent Clinical Notes Feb, Essential hypertension (ICD-10 - I10) PLAN OF TREATMENT Medication Medication Name Sig Start Date Stop Date Candesartan Cilexetil 8 MG 1 tablet Orally Once a day for 30 day(s) Jan, Toujeo SoloStar 300 UNIT/ML 90 units Subcutaneous Daily for 40 HumaLOG 100 UNIT/ML 25 units Subcutaneous bid metFORMIN HCl 500 MG 2 tablet with meals Orally Twice a day Next Appt Details Provider Name:Pavithra Melendez, 2021-04 10:15:00 AM, [address], , [place], [address], Insurance Providers Payer Name Payer Address Payer Phone Insured Name Patient Relati onship to Insured Coverage Start Date Coverage End Date BCBS [place] WHITNEY O [phone] [facility] [place] [id number] MARYBETH BAHENA self
--- OUTSIDE RECORDS SUMMARY | 2021-06-14 02:54 | CCD ---
Author Author [facility] Organization [facility] Address Unknown Phone Unavailable Care Team Providers Care Industrial Manufacturing Technician Name Role Phone Pavithra Melendez Unavailable PROBLEMS Type Condition ICD9-CM Code BAV63-QR Code Onset Dates Condition S tatus W/U Status Risk SNOMED Code Notes Problem Morbid obesity E66.01 Active confirmed 56938 6002 Problem Microalbuminuria R80.9 Active confirmed 312 144656 Problem half-way current use of insulin Z79.4 Active conf irmed 616656277 Problem Grief reaction F43.20 Active confirmed 14456 5009 Problem Type 2 diabetes mellitus with hyperglycemia E11.65 Active confirmed 075832767 Problem Bilateral carpal tunnel syndrome G56.03 Active conf irmed 39010192 Problem Primary insomnia F51.01 Active confirmed 397 2004 Problem Anxiety F41.9 Active confirmed 33879099 Problem Menorrhagia with regular cycle N92.0 Active confir med 494494847 Problem Essential hypertension I10 Active confirmed 28240261 Problem Current moderate episode of major depressive disorder without prior episode F32.1 Active confirmed 21152383 Problem Cigarette nicotine dependence in remission F17.211 Active confirmed 814295652 Problem Moderate persistent asthma with acute exacerbation J45.41 Active confirmed 023245332165199 Problem half-way (current) use of insulin Z79.4 Activ e confirmed 612367676 Problem Type 2 diabetes mellitus without complications E11 .9 Active confirmed 079776448 Problem Mild intermittent asthma without complication J45. 20 Active confirmed 486164933 ALLERGIES Allergen (clinical drug ingredient) Drug/Non Drug Allergy do cumented on EMR Reaction Allergy Type Onset Date Status alogliptin Alogliptin Benzoate([facility] Code:[address]-67) GI/achines s Drug Allergy Active lisinopril Lisinopril([facility] Code:[address]-61) Very High BP per patient report Drug Allergy Active dulaglutide Trulicity([facility] Code:[address]-87) heart racing Drug Aller gy Active metformin Metformin HCl([facility] Code:[address]-74) kidney pain Drug All ergy Active Penicillin (For Allergies Use Only) throat swelling Drug A llergy Active ENCOUNTERS from 1988 to 2021-06-04 Encounter Location Date Provider Diagnosis [facility] [address] [place] [address] 30 Apr, 2021 Pavithra Wetterharyan Type 2 diabetes mellitus without complic ations E11.9 IMMUNIZATIONS Vaccine Route Administration Date Status Influenza [...] Education Language: Question Answer Notes Languages spoken: Indonesian Buddhism: Question Answer Notes Buddhism 08 Mu-Ism Sexual Hx: Question Answer Notes Had sex [...] REASON FOR REFERRAL No Information VITAL SIGNS Weight 324.6 lbs 30 Apr, 2021 Weight-kg 147.24 kg 30 Apr, 2021 Height 5'5'' in 30 Apr, 2021 BMI 54.01 kg/m2 30 Apr, 2021 Heart Rate 125 /min Apr, Respiratory Rate 18 /min Apr, Temperature 96.5 degrees Fahrenheit Apr, Oximetry 98 Apr, Blood pressure systolic 126 mm Hg Apr, Blood pressure diastolic 64 mm Hg Apr, MEDICATIONS Medication SIG (Take, Route, Frequency, Duration) [...] needed for 25 days Sep, Active Pen [place] 1/2" 29G X 12MM as directed dx:e11.65 [...] Information RESULTS No Results REASON FOR VISIT 3m/BW prior-has had [employer] vacc will call with dates MEDICAL (GENERAL) HISTORY Type Description Date Medical [...] Notes Treatment Notes Treatm ent Clinical Notes Apr, Type 2 diabetes mellitus without complications ( ICD-10 - E11.9) Flozins may be cost prohibitive. Did not tolerate other meds as per allergy list. Gastric bypass not covered by her insurance Increase [employer] and she will work harder on her diet and activity PLAN OF TREATMENT Medication Medication Name Sig Start Date Stop Date HumaLOG 100 UNIT/ML 25 units Subcutaneous bid Insulin Syringe 30G X 1/2 as directed sublingually thr ee times daily for 90 day(s) Jul, Toujeo SoloStar 300 UNIT/ML 50 Subcutaneous twice a day for 30 d ays metFORMIN HCl 500 MG 2 tablet with meals Orally Twice a day Treatment Notes Assessment Notes Clinical Notes Type 2 diabetes mellitus without complications Flozins may be cost prohibitive.Did not tolerate other meds as per allergy list.Gastric bypass not covered by her insuranceIncrease Toujeo and she will work harder on her diet and activity Future Test Test Name Order Date HEMOGLOBIN A1c [id number] Basic Metabolic Profile (BMP) [id number] Next Appt Details 3 Months, labs prior Reason: Provider Name:Pavithra Melendez, 2021-07 09:00:00 AM, [address], , [place], [address], Insurance Providers Payer Name Payer Address Payer Phone Insured Name Patient Relati onship to Insured Coverage Start Date Coverage End Date BCALICIA WHITNEY PPO [phone] [facility] [place] [facility] [place] [id number]
--- OUTSIDE RECORDS SUMMARY | 2021-06-14 02:54 | CCD ---
Author Author [facility] Organization [facility] Address Unknown Phone Unavailable Care Team Providers Care Inventory Coordinator Name Role Phone Jose Manuel Marin MD Unavailable Unavailable Jose Manuel Marin MD Unavailable Unavailable Jose Manuel Marin MD Unavailable Unavailable Marin, L Etienne MD Unavailable Unavailable Marin, L Etienne MD Unavailable Unavailable Marin, L Etienne MD Unavailable Unavailable Marin, L Etienne MD Unavailable Unavailable Marin, L Etienne MD Unavailable Unavailable Marin, L Etienne MD Unavailable Unavailable Marin, L Etienne MD Unavailable Unavailable Marin, L Etienne MD Unavailable Unavailable Marin, L Etienne MD Unavailable Unavailable Marin, L Etienne MD Unavailable Unavailable Marin, L Etienne MD Unavailable Unavailable Marin, L Etienne MD Unavailable Unavailable Marin, L Etienne MD Unavailable Unavailable Marin, L Etienne MD Unavailable Unavailable Marin, L Etienne MD Unavailable Unavailable Marin, L Etienne MD Unavailable Unavailable Marin, L Etienne MD Unavailable Unavailable Marin, L Etienne MD Unavailable Unavailable Marin, L Etienne MD Unavailable Unavailable Marin, L Etienne MD Unavailable Unavailable Marin, L Etienne MD Unavailable Unavailable Marin, L Etienne MD Unavailable Unavailable Marin, L Etienne MD Unavailable Unavailable Marin, L Etienne MD Unavailable Unavailable Marin, L Etienne MD Unavailable Unavailable Marin, L Etienne MD Unavailable Unavailable Marin, L Etienne MD Unavailable Unavailable Marin, L Etienne MD Unavailable Unavailable Marin, L Etienne MD Unavailable Unavailable Marin, L Etienne MD Unavailable Unavailable Marin, L Etienne MD Unavailable Unavailable Marin, L Etienne MD Unavailable Unavailable Marin, L Etienne MD Unavailable Unavailable Marin, L Etienne MD Unavailable Unavailable Marin, L Etienne MD Unavailable Unavailable Marin, L Etienne MD Unavailable Unavailable Marin, L Etienne MD Unavailable Unavailable Marin, L Etienne MD Unavailable Unavailable Marin, L Etienne MD Unavailable Unavailable Marin, L Etienne MD Unavailable Unavailable Marin, L Etienne MD Unavailable Unavailable Marin, L Etienne MD Unavailable Unavailable Marin, L Etienne MD Unavailable Unavailable Marin, L Etienne MD Unavailable Unavailable Marin, L Etienne MD Unavailable Unavailable Marin, L Etienne MD Unavailable Unavailable Marin, L Etienne MD Unavailable Unavailable Re-disclosure Warning The records that you are about to access may contain information from federally-assisted alcohol or drug abuse programs. If such information is present, then the following federally mandated warning applies: This information has been disclosed to you from records protected by federal confidentiality rules (42 CFR part 2). The federal rules prohibit you from making any further disclosure of this information unless further disclosure is expressly permitted by the written consent of the person to whom it pertains or as otherwise permitted by 42 CFR part 2. A general authorization for the release of medical or other information is NOT sufficient for this purpose. The Federal rules restrict any use of the information to criminally investigate or prosecute any alcohol or drug abuse patient.The records that you are about to access may contain highly sensitive health information, the redisclosure of which is protected by Article 27-F of the [facility] Public Health law. If you continue you may have access to information: Regarding HIV / AIDS; Provided by facilities licensed or operated by the [facility] Office of Mental Health; or Provided by the [facility] Office for People With Developmental Disabilities. If such information is present, then the following [facility] mandated warning applies: This information has been disclosed to you from confidential records which are protected by state law. State law prohibits you from making any further disclosure of this information without the specific written consent of the person to whom it pertains, or as otherwise permitted by law. Any unauthorized further disclosure in violation of state law may result in a fine or usp sentence or both. A general authorization for the release of medical or other information is NOT sufficient authorization for further disc losure. Family History Family Member Name Family Member Gender Family Member Status Date o f Status Description Data Source(s) Unknown Male Problem MEDENT ([facility]) Unknown Unknown Problem MEDENT ([facility]) Encounters Encounter Providers Location Date Indications Data Source(s ) Unknown [address] [facility] [address] [address] 06/02/2021 12:00:00 AM EDT eCW1 ([facility]) Outpatient [address] [facility] [address] [address] 05/29/2021 12:00:00 AM EDT eCW1 ([facility]) Unknown [address] [facility] [address] [place] [address] 04/17/2021 12:00:00 AM EDT eCW1 ([facility]) Unknown [address] [facility] [address] [place] [address] 03/25/2021 12:00:00 AM EDT eCW1 ([facility]) Unknown [address] [facility] [address] [address] 02/22/2021 12:00:00 AM EDT eCW1 ([facility]) Unknown [address] [facility] [address] [address] 02/20/2021 12:00:00 AM EDT eCW1 ([facility]) Unknown [address] [facility] [place] [address] 02/20/2021 12:00:00 AM EDT eCW1 ([facility]) Outpatient [address] [facility] [place] [address] 02/20/2021 12:00:00 AM EDT eCW1 ([facility]) Unknown [address] [facility] [place] [address] 02/20/2021 12:00:00 AM EDT eCW1 ([facility]) Unknown [address] [facility] [place] [facility] [address] 02/14/2021 12:00:00 AM EDT eCW1 ([facility]) Unknown [address] [facility] [place] [address] 01/08/2021 12:00:00 AM EDT eCW1 ([facility]) Outpatient Attender: Etienne Marin MD Physical Therapy 10/24/2020 1 0:00:00 AM EST MEDENT ([facility]) Outpatient [address] [facility] [place] [address] 10/24/2020 12:00:00 AM EST eCW1 ([facility]) Unknown [address] [facility] [address] [place] [address] 08/30/2020 12:00:00 AM EST eCW1 ([facility]) Unknown [address] [facility] [place] [facility] [address] 08/15/2020 12:00:00 AM EST eCW1 ([facility]) Outpatient [address] [facility] [place] [address] 08/02/2020 12:00:00 AM EST eCW1 ([facility]) Unknown [address] [facility] [place] [facility] [address] 07/27/2020 12:00:00 AM EST eCW1 ([facility]) Outpatient [address] [facility] [place] [facility] [address] 06/13/2020 12:00:00 AM EDT eCW1 ([facility]) Immunizations Vaccine Date Status Description Data Source(s) COVID-19 VACC, MRNA(PFIZER)/PF 03/10/2021 12:00:00 AM EDT completed [facility] COVID-19 VACCINE Pfizer 03/10/2021 12:00:00 AM EDT completed [facility] Vaccine Series Complete: YESThis Data wa s Submitted to [facility] [employer] COVID-19 VACCINE Pfizer 02/21/2021 12:00:00 AM EDT completed [facility] Vaccine Series Complete: NOThis Data was Submitted to [facility] [employer] COVID-19 VACC, MRNA(PFIZER)/PF 02/21/2021 12:00:00 AM EDT completed [facility] Medications Medication Brand Name Start Date Product Form Dose Route Admi nistrative Instructions Pharmacy Instructions Status Indications Reaction Description Data Source(s) candesartan cilexetil 8 MG Oral Tablet Candesartan Cil exetil 8 MG Candesartan Cilexetil 8 MG 02/20/2021 12:00:00 AM EDT 1.0 {tablet} active Candesartan Cilexetil 8 MG eCW1 ([facility]) candesartan cilexetil 8 MG Oral Tablet Candesartan Cil exetil 8 MG Candesartan Cilexetil 8 MG 02/20/2021 12:00:00 AM EDT 1.0 {tablet} active Candesartan Cilexetil 8 MG eCW1 ([facility]) candesartan cilexetil 8 MG Oral Tablet Candesartan Cil exetil 8 MG Candesartan Cilexetil 8 MG 02/20/2021 12:00:00 AM EDT 1.0 {tablet} active Candesartan Cilexetil 8 MG eCW1 ([facility]) candesartan cilexetil 8 MG Oral Tablet Candesartan Cil exetil 8 MG Candesartan Cilexetil 8 MG 02/20/2021 12:00:00 AM EDT 1.0 {tablet} active Candesartan Cilexetil 8 MG eCW1 ([facility]) candesartan cilexetil 8 MG Oral Tablet Candesartan Cil exetil 8 MG Candesartan Cilexetil 8 MG 02/20/2021 12:00:00 AM EDT 1.0 {tablet} active Candesartan Cilexetil 8 MG eCW1 ([facility]) candesartan cilexetil 8 MG Oral Tablet Candesartan Cil exetil 8 MG Candesartan Cilexetil 8 MG 02/20/2021 12:00:00 AM EDT 1.0 {tablet} active Candesartan Cilexetil 8 MG eCW1 ([facility]) candesartan cilexetil 8 MG Oral Tablet Candesartan Cil exetil 8 MG Candesartan Cilexetil 8 MG 02/20/2021 12:00:00 AM EDT 1.0 {tablet} active Candesartan Cilexetil 8 MG eCW1 ([facility]) candesartan cilexetil 8 MG Oral Tablet Candesartan Cil exetil 8 MG Candesartan Cilexetil 8 MG 02/20/2021 12:00:00 AM EDT 1.0 {tablet} active Candesartan Cilexetil 8 MG eCW1 ([facility]) candesartan cilexetil 8 MG Oral Tablet Candesartan Cil exetil 8 MG Candesartan Cilexetil 8 MG 02/20/2021 12:00:00 AM EDT 1.0 {tablet} active Candesartan Cilexetil 8 MG eCW1 ([facility]) Acetaminophen 325 MG / Hydrocodone Bitartrate 5 MG Ora l Tablet Hydrocodone-Acetaminophen 10/31/2020 12:00:00 AM EST ORAL active MEDENT ([facility]) candesartan cilexetil 4 MG Oral Tablet Candesartan Cil exetil 4 MG Candesartan Cilexetil 4 MG 08/02/2020 12:00:00 AM EST 1.0 {tablet} active Candesartan Cilexetil 4 MG eCW1 ([facility]) candesartan cilexetil 4 MG Oral Tablet Candesartan Cil exetil 4 MG Candesartan Cilexetil 4 MG 08/02/2020 12:00:00 AM EST 1.0 {tablet} active Candesartan Cilexetil 4 MG eCW1 ([facility]) candesartan cilexetil 4 MG Oral Tablet Candesartan Cil exetil 4 MG Candesartan Cilexetil 4 MG 08/02/2020 12:00:00 AM EST 1.0 {tablet} active Candesartan Cilexetil 4 MG eCW1 ([facility]) candesartan cilexetil 4 MG Oral Tablet Candesartan Cil exetil 4 MG Candesartan Cilexetil 4 MG 08/02/2020 12:00:00 AM EST 1.0 {tablet} active Candesartan Cilexetil 4 MG eCW1 ([facility]) candesartan cilexetil 4 MG Oral Tablet Candesartan Cil exetil 4 MG Candesartan Cilexetil 4 MG 08/02/2020 12:00:00 AM EST 1.0 {tablet} active Candesartan Cilexetil 4 MG eCW1 ([facility]) candesartan cilexetil 4 MG Oral Tablet Candesartan Cil exetil 4 MG Candesartan Cilexetil 4 MG 08/02/2020 12:00:00 AM EST 1.0 {tablet} active Candesartan Cilexetil 4 MG eCW1 ([facility]) Insurance Providers Payer name Policy type / Coverage type Policy ID Covered constitution party ID Covered constitution party's relationship to yeung Policy Yeung Plan Information [facility] 020/520 [id number] [facility] [place] [id number] Self [id number] [facility] Community Plan Medigap Part B [id number] Self [id number] [facility] Community Plan Medigap Part B [id number] Self [id number] [facility] Plan [facility] Part B [id number] Self [id number] [facility] Plan [facility] Part B [id number] Self [id number] [facility] Part B [id number] Self [id number] [facility] [id number] Self [id number] [facility] Part B [id number] Self [id number] [place] 302/307 [id number] [id number] [place] P[place] 302/307 [id number] SP [id number] ANSI-Commercial [id number] ANSI-Commercial [id number] ANSI-Medicaid [id number] ANSI-Commercial [id number] [facility] [id number] ANSI-Commercial [id number] ANSI-Medicaid [id number] ANSI-Commercial [id number] ANSI-Medicaid [id number] ANSI-Medicaid [id number] ANSI-Commercial [id number] ANSI-Medicaid [id number] ANSI-Commercial [id number] ANSI-Medicaid [id number] ANSI-Commercial [id number] ANSI-Commercial [id number] ANSI-Medicaid [id number] ANSI-Medicaid [id number] ANSI-Commercial [id number] ANSI-Medicaid [id number] ANSI-Commercial [id number] ANSI-Commercial [id number] ANSI-Medicaid [id number] ANSI-Commercial [id number] ANSI-Medicaid [id number] SELF PAY ONLY [id number] SP [id number] [facility] O [id number] S [id number] ANSI-Not a Secondary Insurance [id number] ANSI-Medicaid [id number] ANSI-Medicaid [id number] ANSI-Medicaid [id number] ANSI-Medicaid [id number] ANSI-Medicaid [id number] [facility] [id number] ANSI-Medicaid [id number] ANSI-Medicaid [id number] Self Pay P [id number] S [id number] ANSI-Medicaid [id number] ANSI-Medicaid [id number] ANSI-Medicaid [id number] ANSI-Medicaid [id number] ANSI-Medicaid [id number] ANSI-Medicaid [id number] ANSI-Medicaid [id number] [facility] [id number] SP [id number] [facility] COMMUN[facility]AN [facility] [id number] SP [id number] [employer] [id number] [id number] [employer] BCBS Health Maintenance Organization (HMO) [id number] Self BCBS/Blue Card Commercial [id number] Family Dependent [place]BS [place] 020/520 [id number] BLUE CROSS BLUE SHIELD -O/P [id number] 01 [id number] BLUE CROSS BLUE SHIELD -O/P [id number] SELF PAY UNAVAILABLE SP UNAVAILA BLE [place] PPO 302/307 [id number] SP [id number] [employer] [place] 020/520 [id number] SP [id number] [employer] BCBS B [id number] S W [id number] [employer] [place] 020/520 [id number] [employer] [place] 020/520 [id number] HU2 [id number] [employer] BCBS B [id number] S W [id number] [place] PPO 302/307 [id number] SP [id number] ANSI-Commercial [id number] ANSI-Medicaid [id number] [place] Commercial [id number] Family Dependent [id number] ANSI-Medicaid [id number] Problems, Conditions, and Diagnoses Code Display Name Description Problem Type Effective Dates Data Source(s) F32.1 80694740 Current moderate epi sode of major depressive disorder without prior episode Problem 02/20/2021 12:00:00 AM EDT eCW1 ([facility]) N92.0 [id number] Menorrhagia with regular cycle Problem 10/24/2020 12:00:00 AM EST eCW1 ([facility]) Surgeries/Procedures Procedure Description Date Indications Data Source(s) Endoscopy Wrist W/Release Transverse Carpal Ligament 10/31/2020 12:00:00 AM EST MEDENT ([facility]) RADEX WRIST 2 VIEWS 10/24/2020 12:00:00 AM EST MEDENT ([facility]) Results ID Date Data Source [id number] 10/28/2020 11:24:00 AM EST MEDENT ([facility]) Name Value Range Interpretation Code Description Data Leelee rce(s) Supporting Document(s) Covid Rapid Testing Laboratory test result MEDENT ([facility]) ID Date Data Source [id number] 10/25/2020 03:31:00 PM EST MEDENT ([facility]) Name Value Range Interpretation Code Description Data Leelee rce(s) Supporting Document(s) Laboratory test finding (navigational concept) Laboratory test result MEDENT ([facility]) ID Date Data Source [id number] 10/24/2020 12:00:00 AM EST eCW1 ([facility]) Name Value Range Interpretation Code Description Data Leelee rce(s) Supporting Document(s) Microalbumin/Creatinine [Mass Ratio] in Urine 148.0 eCW1 ([facility]) Microalbumin/Creatinine [Ratio] in Urine 336.4 0.0-30.0 eCW1 ([facility]) Albumin/Creatinine [Mass Ratio] in Urine 498.0 eCW1 ([facility]) ID Date Data Source [id number] 10/24/2020 12:00:00 AM EST eCW1 ([facility]) Name Value Range Interpretation Code Description Data Leelee rce(s) Supporting Document(s) Hemoglobin A1c/Hemoglobin.total in Blood 6.8 HEMOGLOBIN A1c eCW1 ([facility]) ID Date Data Source FREE T4 & TSH PANEL 10/24/2020 12:00:00 AM EST eCW1 ([facility]) Name Value Range Interpretation Code Description Data Leelee rce(s) Supporting Document(s) 1.05 0.76-1.46 FREE T4 eCW1 ([facility]) 0.849 0.358-3.740 THYROID STIMULATING HORM ONE eCW1 ([facility]) ID Date Data Source Comprehensive Metabolic Profile (CMP) 10/24/2020 12:00:00 AM EST eCW1 ([facility]) Name Value Range Interpretation Code Description Data Leelee rce(s) Supporting Document(s) 138 70-100 GLUCOSE, FASTING eCW1 ([facility]) > 60.0 >60 GLOMERULAR FILTRATION RATE eCW 1 ([facility]) 0.66 0.55-1.30 CREATININE FOR GFR eCW1 ([facility]) 16 7-18 BLOOD UREA NITROGEN eCW1 ([facility]) 140 136-145 SODIUM LEVEL eCW1 ([facility]) 5.0 3.5-5.1 POTASSIUM SERUM eCW1 ([facility]) 9.7 8.5-10.1 CALCIUM LEVEL eCW1 ([facility]) 28 21-32 CARBON DIOXIDE LEVEL eCW1 ([facility]) 10 7-37 AST/SGOT eCW1 (Critical access hospital) 107 98-107 CHLORIDE LEVEL eCW1 ([facility]) 46 45-117 ALKALINE PHOSPHATASE eCW1 ([facility]) 0.2 0.2-1.0 BILIRUBIN,TOTAL eCW1 ([facility]) 6.9 6.4-8.2 TOTAL PROTEIN eCW1 ([facility]) 26 12-78 ALT/SGPT eCW1 (Critical access hospital) 3.9 3.2-5.2 ALBUMIN eCW1 (Critical access hospital) 1.3 1.2-2.2 ALBUMIN/GLOBULIN RATIO eCW1 ([facility]) ID Date Data Source CBC - Complete Blood Count 10/24/2020 12:00:00 AM EST eCW1 ( [facility]) Name Value Range Interpretation Code Description Data Leelee rce(s) Supporting Document(s) 14.1 4.0-10.0 WHITE BLOOD COUNT eCW1 ([facility]) 42.6 36.0-47.0 HEMATOCRIT eCW1 ([facility]) 13.3 12.0-15.5 HEMOGLOBIN eCW1 ([facility]) 4.81 4.00-5.40 RED BLOOD COUNT eCW1 ([facility]) 88.6 80.0-96.0 MEAN CORPUSCULAR VOLUME e CW1 ([facility]) 14.5 11.5-14.5 RED CELL DISTRIBUTION WID TH eCW1 ([facility]) 27.7 27.0-33.0 MEAN CORPUSCULAR HEMOGLOB IN eCW1 ([facility]) 391 150-450 PLATELET COUNT, AUTOMATED W1 ([facility]) 31.2 32.0-36.5 MEAN CORPUSCULAR HGB CONC W1 ([facility]) ID Date Data Source [id number] 05/18/2020 10:00:00 AM EDT [facility] Name Value Range Interpretation Code Description Data Leelee rce(s) Supporting Document(s) SARS coronavirus 2 RNA [facility] This lab was ordered by [facility] and reported by [facility]. ID Date Data Source [id number] 05/15/2020 12:00:00 AM EDT [facility] Siva Jimenez DO Patient Name: MARYBETH BAHENA[address] [place] [address] [facility] 1990[facility] [place] [address] Date of Exam: 05/15/2020PH#: Fax: [phone] EXAM: US OB, FOLLOW-UP (GROWTH, ORGAN SYSTEMS)/FETUSCLINICAL INFORMATION: Gestational diabetes. 4, Para 0, Ab 3LMP: UnknownGA by first ultrasound: 38 weeks 6 days, SUNDAY: 05/23/2020Fetal Heart Rate: 176 BPMAmniotic fluid index: 27.6 cm (7.2 - 22.7)Amniotic fluid volume is increased (polyhydramnios).S/D Umbilical Mid-Cord: 1.90Type of Gestation: SingletonIntrauterine in breech presentation.Placental location: Left lateral, Grade 3Accredited by the [employer] in Obstetrical Ultrasound.CHIDI Mccarthy/Rafy cosme for referring MARYBETH BAHENA to our office. Electronically Signed - MULU ROLLINS DO 05/16/20 14:09 Name Value Range Interpretation Code Description Data Leelee rce(s) Supporting Document(s) ID Date Data Source [id number] 05/08/2020 12:00:00 AM EDT [facility] Siva Jimenez DO Patient Name: АЛЕКСАНДР BAHENA [facility] Date of : 1990[place] [address] Date of Exam: 05/08/2020PH#: Fax: [phone] EXAM: US OB, FOLLOW-UP (GROWTH, ORGAN SYSTEMS)/FETUSCLINICAL INFORMATION: Gestational diabetes. 4, Para 0, Ab 3LMP: UnknownGA by first ultrasound: 37 weeks 6 days, SUNDAY: 05/23/2020Fetal Heart Rate: 149 BPMAmniotic fluid index: 28.6 cm (7.3 - 23.9)Umbilical - Mid Cord: S/D 2.20Type of Gestation: SingletonIntrauterine in breech presentation.Placental location: Fundal, left lateral, Grade 2Amniotic fluid volume is increased (Polyhydramnios).Accredited by the [employer] in Obstetrical Ultrasound.CHIDI Mccarthy/Rafy cosme for referring MARYBETH BAHENA to our office. Electronically Signed - MULU ROLLINS DO 05/09/20 14:10 Name Value Range Interpretation Code Description Data Leelee rce(s) Supporting Document(s) ID Date Data Source [id number] 04/24/2020 12:00:00 AM EDT [facility] ology Imaging Carla Humphrey Cnm Patient Name: АЛЕКСАНДР BAHENA [facility] 1990[facility] [place] [address] Date of Exam: 04/24/2020PH#: Fax: [phone] EXAM: US OB, FOLLOW-UP (GROWTH, ORGAN SYSTEMS)/FETUSCLINICAL INFORMATION: Supervision of . EFW and OH. 4, Para 0, Ab 3LMP: UnknownGA by today's ultrasound = 35 weeks 6 days, SUNDAY: 05/23/2020BPD: 8.7 cm = 35 weeks 2 daysHC: 32.8 cm = 37 weeks 2 daysAC: 31.9 cm = 35 weeks 6 daysFL: 6.8 cm = 35 weeks 0 daysHL: 6.3 cm = 36 weeks 2 daysAFI: 17.7 cm (7.7 - 24.9)Estimated weight: 2744 grams, 6 pounds 0 ounces, 47th percentileFetal Heart Rate: 170 BPMUmbilical Mid-Cord S/D: 2.50Type of gestation: SingletonIntrauterine in breech presentation.Placental location: left lateral, Grade 3Amniotic fluid volume: Normal.CHIDI Mccarthy/Rafy you for referring MARYBETH BAHENA to our office. Electronically Signed - MULU ROLLINS DO 04/25/20 14:38 Name Value Range Interpretation Code Description Data Leelee rce(s) Supporting Document(s) ID Date Data Source [id number] 04/24/2020 12:00:00 AM EDT [facility] Imaging Carla Humphrey Cnm Patient Name: АЛЕКСАНДР BAHENA [facility] Date of : 1990[place] [address] Date of Exam: 04/24/2020PH#: Fax: [phone] EXAM: US OB, FOLLOW-UP (GROWTH, ORGAN SYSTEMS)/FETUSCLINICAL INFORMATION: Supervision of . EFW and OH. 4, Para 0, Ab 3LMP: UnknownGA by today's ultrasound = 35 weeks 6 days, SUNDAY: 05/23/2020BPD: 8.7 cm = 35 weeks 2 daysHC: 32.8 cm = 37 weeks 2 daysAC: 31.9 cm = 35 weeks 6 daysFL: 6.8 cm = 35 weeks 0 daysHL: 6.3 cm = 36 weeks 2 daysAFI: 17.7 cm (7.7 - 24.9)Estimated weight: 2744 grams, 6 pounds 0 ounces, 47th percentileFetal Heart Rate: 170 BPMUmbilical Mid-Cord S/D: 2.50Type of gestation: SingletonIntrauterine in breech presentation.Placental location: left lateral, Grade 3Amniotic fluid volume: Normal.CHIDI Mccarthy/Rafy cosme for referring MARYBETH BAHENA to our office. Electronically Signed - MULU ROLLINS DO 04/25/20 14:38 Name Value Range Interpretation Code Description Data Leelee rce(s) Supporting Document(s) Procedure Social History Code Duration Value Status Description Data Source(s ) Smoking 05/29/2021 12:00:00 AM EDT Former Smoker completed Former Smoker eCW1 ([facility]) Smoking 05/29/2021 12:00:00 AM EDT Former Smoker completed Former Smoker eCW1 ([facility]) Smoking 02/21/2021 12:00:00 AM EDT Former Smoker completed Former Smoker eCW1 ([facility]) Smoking 02/21/2021 12:00:00 AM EDT Former Smoker completed Former Smoker eCW1 ([facility]) Smoking 02/21/2021 12:00:00 AM EDT Former Smoker completed Former Smoker eCW1 ([facility]) Smoking 02/21/2021 12:00:00 AM EDT Former Smoker completed Former Smoker eCW1 ([facility]) Smoking 02/21/2021 12:00:00 AM EDT Former Smoker completed Former Smoker eCW1 ([facility]) Smoking 02/20/2021 12:00:00 AM EDT Former Smoker completed Former Smoker eCW1 ([facility]) Smoking 02/20/2021 12:00:00 AM EDT Former Smoker completed Former Smoker eCW1 ([facility]) Smoking 10/24/2020 12:00:00 AM EST Former Smoker completed Former Smoker eCW1 ([facility]) Smoking 10/24/2020 12:00:00 AM EST Former Smoker completed Former Smoker eCW1 ([facility]) Smoking 10/24/2020 12:00:00 AM EST Former Smoker completed Former Smoker eCW1 ([facility]) Smoking 08/02/2020 12:00:00 AM EST Former Smoker completed Former Smoker eCW1 ([facility]) Smoking 08/02/2020 12:00:00 AM EST Former Smoker completed Former Smoker eCW1 ([facility]) Smoking 08/02/2020 12:00:00 AM EST Former Smoker completed Former Smoker eCW1 ([facility]) Smoking 06/13/2020 12:00:00 AM EDT Former Smoker completed Former Smoker eCW1 ([facility]) Smoking 06/13/2020 12:00:00 AM EDT Former Smoker completed Former Smoker eCW1 ([facility]) Vital Signs ID Date Data Source UNK Name Value Range Interpretation Code Description Data Source(s) Body weight 324.6 [lb_av] 324.6 [lb_av] eCW1 ([facility]) Body weight 147.24 kg 147.24 kg W1 ([facility]) Body height [in_i] eCW1 ([facility]) Body mass index (BMI) [Ratio] 54.01 kg/m2 54.01 kg/m2 eCW1 ([facility]) Heart rate 125 /min 125 /min eCW1 ([facility]) Respiratory rate 18 /min 18 /min eCW1 ([facility]) Body temperature 96.5 [degF] 96.5 [degF] eCW1 ( [facility]) Systolic blood pressure 126 mm[Hg] 126 mm[Hg] e CW1 ([facility]) Diastolic blood pressure 64 mm[Hg] 64 mm[Hg] eCW1 ([facility]) Body weight 311 [lb_av] 311 [lb_av] eCW1 ([facility]) Body height [in_i] eCW1 ([facility]) Body mass index (BMI) [Ratio] 60.73 kg/m2 60.73 kg/m2 W1 ([facility]) Heart rate 110 /min 110 /min eCW1 ([facility]) Respiratory rate 18 /min 18 /min eCW1 ([facility]) Body temperature 97.8 [degF] 97.8 [degF] eCW1 ( [facility]) Systolic blood pressure 158 mm[Hg] 158 mm[Hg] e CW1 ([facility]) Diastolic blood pressure 88 mm[Hg] 88 mm[Hg] eCW1 ([facility]) Body temperature 94.7 [degF] 94.7 [degF] MEDENT ([facility]) Body mass index (BMI) [Ratio] 52.7 kg/m2 52.7 k g/m2 MEDENT ([facility]) Body weight 307.00 [lb_av] 307.00 [lb_av] MEDEN T ([facility]) Body temperature 97.1 [degF] 97.1 [degF] MEDENT ([facility]) Body height 64 [in_i] 64 [in_i] MEDENT ([facility] ) 5'4" Body weight 311.2 [lb_av] 311.2 [lb_av] eCW1 ([facility]) Body height [in_i] eCW1 ([facility]) Body mass index (BMI) [Ratio] 60.77 kg/m2 60.77 kg/m2 eCW1 ([facility]) Heart rate 121 /min 121 /min eCW1 ([facility]) Respiratory rate 18 /min 18 /min eCW1 ([facility]) Body temperature 97.1 [degF] 97.1 [degF] eCW1 ( [facility]) Systolic blood pressure 134 mm[Hg] 134 mm[Hg] e CW1 ([facility]) Diastolic blood pressure 84 mm[Hg] 84 mm[Hg] eCW1 ([facility]) Body temperature 98.9 [degF] 98.9 [degF] eCW1 ( [facility]) Systolic blood pressure 160 mm[Hg] 160 mm[Hg] e CW1 ([facility]) Diastolic blood pressure 80 mm[Hg] 80 mm[Hg] eCW1 ([facility]) Body weight 297.4 [lb_av] 297.4 [lb_av] eCW1 ([facility]) Respiratory rate 18 /min 18 /min eCW1 ([facility]) Body mass index (BMI) [Ratio] 58.08 kg/m2 58.08 kg/m2 eCW1 ([facility]) Body height [in_i] eCW1 ([facility]) Heart rate 79 /min 79 /min eCW1 ([facility]) Body weight 289.6 [lb_av] 289.6 [lb_av] eCW1 ([facility]) Body height [in_i] eCW1 ([facility]) Body mass index (BMI) [Ratio] 56.55 kg/m2 56.55 kg/m2 eCW1 ([facility]) Heart rate 96 /min 96 /min eCW1 ([facility]) Respiratory rate 18 /min 18 /min eCW1 ([facility]) Body temperature 97 [degF] 97 [degF] eCW1 ([facility]) Systolic blood pressure 130 mm[Hg] 130 mm[Hg] e CW1 ([facility]) Diastolic blood pressure 90 mm[Hg] 90 mm[Hg] eCW1 ([facility]) Patient Treatment Plan of Care Planned Activity Planned Date Details Description Data Source (s) candesartan cilexetil 8 MG Oral Tablet 02/20/2021 12:00:00 AM EDT eCW1 ([facility]) candesartan cilexetil 8 MG Oral Tablet 02/20/2021 12:00:00 AM EDT eCW1 ([facility]) candesartan cilexetil 8 MG Oral Tablet 02/20/2021 12:00:00 AM EDT eCW1 ([facility]) candesartan cilexetil 8 MG Oral Tablet 02/20/2021 12:00:00 AM EDT eCW1 ([facility]) candesartan cilexetil 8 MG Oral Tablet 02/20/2021 12:00:00 AM EDT eCW1 ([facility]) candesartan cilexetil 8 MG Oral Tablet 02/20/2021 12:00:00 AM EDT eCW1 ([facility]) candesartan cilexetil 8 MG Oral Tablet 02/20/2021 12:00:00 AM EDT eCW1 ([facility]) candesartan cilexetil 4 MG Oral Tablet 08/02/2020 12:00:00 AM EST eCW1 ([facility]) candesartan cilexetil 4 MG Oral Tablet 08/02/2020 12:00:00 AM EST eCW1 ([facility]) candesartan cilexetil 4 MG Oral Tablet 08/02/2020 12:00:00 AM EST eCW1 ([facility]) candesartan cilexetil 4 MG Oral Tablet 08/02/2020 12:00:00 AM EST eCW1 ([facility]) candesartan cilexetil 4 MG Oral Tablet 08/02/2020 12:00:00 AM EST eCW1 ([facility]) candesartan cilexetil 4 MG Oral Tablet 08/02/2020 12:00:00 AM EST eCW1 ([facility])
--- OUTSIDE RECORDS SUMMARY | 2021-06-14 02:54 | CCD ---
Author Author [facility] Organization [facility] Address Unknown Phone Unavailable Care Team Providers Care Business Objects Report Developer Name Role Phone Pavithra Melendez Unavailable PROBLEMS Type Condition ICD9-CM Code [id number] Code Onset Dates Condition S tatus W/U Status Risk SNOMED Code Notes Problem Morbid obesity E66.01 Active confirmed 47281 6002 Problem Microalbuminuria R80.9 Active confirmed 312 751056 Problem penitentiary current use of insulin Z79.4 Active conf irmed 899553185 Problem Grief reaction F43.20 Active confirmed 00394 5009 Problem Type 2 diabetes mellitus with hyperglycemia E11.65 Active confirmed 359412428 Problem Bilateral carpal tunnel syndrome G56.03 Active conf irmed 69991856 Problem Primary insomnia F51.01 Active confirmed 397 2004 Problem Anxiety F41.9 Active confirmed 71058877 Problem Menorrhagia with regular cycle N92.0 Active confir med 986564362 Problem Essential hypertension I10 Active confirmed 08726754 Problem Current moderate episode of major depressive disorder without prior episode F32.1 Active confirmed 24203431 Problem Cigarette nicotine dependence in remission F17.211 Active confirmed 274328226 Problem Moderate persistent asthma with acute exacerbation J45.41 Active confirmed 226413818265182 Problem penitentiary (current) use of insulin Z79.4 Activ e confirmed 747676962 Problem Type 2 diabetes mellitus without complications E11 .9 Active confirmed 524974258 Problem Mild intermittent asthma without complication J45. 20 Active confirmed 325848475 ALLERGIES Allergen (clinical drug ingredient) Drug/Non Drug Allergy do cumented on EMR Reaction Allergy Type Onset Date Status alogliptin Alogliptin Benzoate([facility] Code:[address]-67) GI/achines s Drug Allergy Active lisinopril Lisinopril([facility] Code:[address]-42) Very High BP per patient report Drug Allergy Active dulaglutide Trulicity([facility] Code:[address]-40) heart racing Drug Aller gy Active metformin Metformin HCl([facility] Code:[address]-52) kidney pain Drug All ergy Active Penicillin (For Allergies Use Only) throat swelling Drug A llergy Active ENCOUNTERS from 1990 to 2021-04-17 Encounter Location Date Provider Diagnosis [facility] [address] [place] [address] Mar, Pavithra Wetaden IMMUNIZATIONS Vaccine Route Administration Date Status Influenza [...] Education Language: Question Answer Notes Languages spoken: Scottish Jewish: Question Answer Notes Jewish 08 Tenriism Sexual Hx: Question Answer Notes Had sex [...] Notes Start Da te End Date Status Prena1 1.4 MG 1 tablet Orally Once a day for 30 day(s) Not-Taking HumaLOG 100 UNIT/ML 25 units Subcutaneous bid Active Blood Glucose System Marcus - as directed DX:E11.65 as directed for 99 months Sep, Active Lancets - as directed DX:E11.65 three times daily as neede d for 30 day(s) Sep, Active Blood Glucose Test - as directed In Vitro DX:E11. 65 three times daily as needed for 25 days Sep, Active Pen [place] 1/2" 29G X 12MM as directed dx:e11.65 Daily for 90 d ay(s) Oct, Active Toujeo SoloStar 300 UNIT/ML 90 units Subcutaneous Daily for 40 days Active Candesartan Cilexetil 8 MG 1 tablet Orally Once a day for 30 day (s) Jan, Active Multi Vitamin Daily - 1 tablet Orally Once a day for 30 day(s) Active Insulin Syringe 30G X 1/2 as directed sublingually thr ee times daily for 90 day(s) Jul, Active Albuterol Sulfate HFA 108 (90 Base) MCG/ACT 1 puff as needed Inhalation every 4 hrs Bland Active metFORMIN HCl 500 MG 2 tablet with meals Orally Twice a day Active PROCEDURES No Information RESULTS No Results [...] Medication Name Sig Start Date Stop Date metFORMIN HCl 500 MG 2 tablet with meals Orally Twice a day Candesartan Cilexetil 8 MG 1 tablet Orally Once a day for 30 day(s) Jan, HumaLOG 100 UNIT/ML 25 units Subcutaneous bid Toujeo SoloStar 300 UNIT/ML 90 units Subcutaneous Daily for 40 d ays Next Appt Details Provider Name:Pavithra Melendez, 2021-04 - 10:15:00 AM, [address], , [place], [address], Insurance Providers Payer Name Payer Address Payer Phone Insured Name Patient Relati onship to Insured Coverage Start Date Coverage End Date [employer]EF [employer] PPO [phone] [facility] [place] [address] MARYBETH BAHENA self
[2021-06-14] MEDS ORDERED: CAND8TAB PO (02:56)
[2021-06-14] MEDS ORDERED: NS 1,000 ML IV ONE (07:05)
--- NOTE | 2021-06-14 08:12 | ECGEPIP ---
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
[2021-06-14] MEDS ORDERED: ONDANSETRON 4 MG ORAL DISINTEGRATING TAB PO ONE (08:20)
[2021-06-14] MEDS ORDERED: COMBIVENT RESPIMAT 100-20MCG INHALER 4GM INH ONE (08:20)
--- OUTSIDE RECORDS SUMMARY | 2021-06-14 08:35 | CCD ---
Author Author [facility] Organization [facility] Address Unknown Phone Unavailable Care Team Providers Care Sole Trimmer Name Role Phone Jose Manuel Marin MD Unavailable Unavailable Jose Manuel Marin MD Unavailable Unavailable Jose Manuel Marin MD Unavailable Unavailable Marin, L Etienne MD Unavailable Unavailable Marin, L Etienne MD Unavailable Unavailable Marin, L Etienne MD Unavailable Unavailable Mairn, L Etienne MD Unavailable Unavailable Marin, L [...] is protected by Article 27-F of the [facility] Public Health law. If you continue you may have access to information: Regarding HIV / AIDS; Provided by facilities licensed or operated by the [facility] Office of Mental Health; or Provided by the [facility] Office for People With Developmental Disabilities. If such information is present, then the following [facility] mandated warning applies: This information has been [...] law may result in a fine or care home sentence or both. A general authorization for [...] Date Indications Data Source(s ) Unknown [address] [facility] [address] [address] 06/02/2021 12:00:00 AM EDT eCW1 ([facility]) Outpatient [address] [facility] [address] [address] 05/29/2021 12:00:00 AM EDT eCW1 ([facility]) Unknown [address] [facility] Y [address] 04/17/2021 12:00:00 AM EDT eCW1 ([facility]) Unknown [address] [facility] [place] [address] 03/25/2021 12:00:00 AM EDT eCW1 ([facility]) Unknown [address] [facility] [address] [address] 02/22/2021 12:00:00 AM EDT eCW1 ([facility]) Unknown [address] [facility] [address] [address] 02/20/2021 12:00:00 AM EDT eCW1 ([facility]) Unknown [address] [facility] [address] [place] [address] 02/20/2021 12:00:00 AM EDT eCW1 ([facility]) Outpatient [address] [facility] [place] [address] 02/20/2021 12:00:00 AM EDT eCW1 ([facility]) Unknown [address] [facility] [place] [address] 02/20/2021 12:00:00 AM EDT eCW1 ([facility]) Unknown [address] [facility] [place] [address] 02/14/2021 12:00:00 AM EDT eCW1 ([facility]) Unknown [address] [facility] [place] [address] 01/08/2021 12:00:00 AM EDT eCW1 ([facility]) Outpatient Attender: Etienne Marin MD Physical Therapy 10/24/2020 1 0:00:00 AM EST MEDENT ([facility]) Outpatient [address] [facility] [place] [address] 10/24/2020 12:00:00 AM EST eCW1 ([facility] Unknown [address] [facility] [place] [address] 08/30/2020 12:00:00 AM EST eCW1 ([facility]) Unknown [address] [facility] [place] [address] 08/15/2020 12:00:00 AM EST eCW1 ([facility]) Outpatient [address] [facility] [place] [address] 08/02/2020 12:00:00 AM EST eCW1 ([facility]) Unknown [address] [facility] [place] [address] 07/27/2020 12:00:00 AM EST eCW1 ([facility]) Outpatient [address] [facility] [place] [address] 06/13/2020 12:00:00 AM EDT eCW1 ([facility]) Immunizations Vaccine Date Status Description Data Source(s) COVID-19 VACC, MRNA(PFIZER)/PF 03/10/2021 12:00:00 AM EDT completed [facility] COVID-19 VACCINE Pfizer 03/10/2021 12:00:00 AM EDT completed [facility] Vaccine Series Complete: YESThis Data wa s Submitted to [facility] Via [employer]. COVID-19 VACCINE Pfizer 02/21/2021 12:00:00 AM EDT completed [facility] Vaccine Series Complete: NOThis Data was Submitted to [facility] Via [employer]. COVID-19 VACC, MRNA(PFIZER)/PF 02/21/2021 12:00:00 AM EDT completed [facility] Medications Medication Brand Name Start Date Product Form Dose Route Admi nistrative Instructions Pharmacy Instructions Status Indications Reaction Description Data Source(s) candesartan cilexetil 8 MG Oral Tablet Candesartan Cil exetil 8 MG Candesartan Cilexetil 8 MG 02/20/2021 12:00:00 AM EDT 1.0 {tablet} active Candesartan Cilexetil 8 MG eCW1 ([facility]) candesartan cilexetil 8 MG Oral Tablet Candesartan Cil exetil 8 MG Candesartan Cilexetil 8 MG 02/20/2021 12:00:00 AM EDT 1.0 {tablet} active Candesartan Cilexetil 8 MG eCW1 ([facility]) candesartan cilexetil 8 MG Oral Tablet Candesartan Cil exetil 8 MG Candesartan Cilexetil 8 MG 02/20/2021 12:00:00 AM EDT 1.0 {tablet} active Candesartan Cilexetil 8 MG eCW1 ([facility]) candesartan cilexetil 8 MG Oral Tablet Candesartan Cil exetil 8 MG Candesartan Cilexetil 8 MG 02/20/2021 12:00:00 AM EDT 1.0 {tablet} active Candesartan Cilexetil 8 MG eCW1 ([facility]) candesartan cilexetil 8 MG Oral Tablet Candesartan Cil exetil 8 MG Candesartan Cilexetil 8 MG 02/20/2021 12:00:00 AM EDT 1.0 {tablet} active Candesartan Cilexetil 8 MG eCW1 ([facility]) candesartan cilexetil 8 MG Oral Tablet Candesartan Cil exetil 8 MG Candesartan Cilexetil 8 MG 02/20/2021 12:00:00 AM EDT 1.0 {tablet} active Candesartan Cilexetil 8 MG eCW1 ([facility]) candesartan cilexetil 8 MG Oral Tablet Candesartan Cil exetil 8 MG Candesartan Cilexetil 8 MG 02/20/2021 12:00:00 AM EDT 1.0 {tablet} active Candesartan Cilexetil 8 MG eCW1 ([facility]) candesartan cilexetil 8 MG Oral Tablet Candesartan Cil exetil 8 MG Candesartan Cilexetil 8 MG 02/20/2021 12:00:00 AM EDT 1.0 {tablet} active Candesartan Cilexetil 8 MG eCW1 ([facility]) candesartan cilexetil 8 MG Oral Tablet Candesartan Cil exetil 8 MG Candesartan Cilexetil 8 MG 02/20/2021 12:00:00 AM EDT 1.0 {tablet} active Candesartan Cilexetil 8 MG eCW1 ([facility]) Acetaminophen 325 MG / Hydrocodone Bitartrate 5 MG Ora l Tablet Hydrocodone-Acetaminophen 10/31/2020 12:00:00 AM EST ORAL active MEDENT ([facility]) candesartan cilexetil 4 MG Oral Tablet Candesartan Cil exetil 4 MG Candesartan Cilexetil 4 MG 08/02/2020 12:00:00 AM EST 1.0 {tablet} active Candesartan Cilexetil 4 MG eCW1 ([facility]) candesartan cilexetil 4 MG Oral Tablet Candesartan Cil exetil 4 MG Candesartan Cilexetil 4 MG 08/02/2020 12:00:00 AM EST 1.0 {tablet} active Candesartan Cilexetil 4 MG eCW1 ([facility]) candesartan cilexetil 4 MG Oral Tablet Candesartan Cil exetil 4 MG Candesartan Cilexetil 4 MG 08/02/2020 12:00:00 AM EST 1.0 {tablet} active Candesartan Cilexetil 4 MG eCW1 ([facility]) candesartan cilexetil 4 MG Oral Tablet Candesartan Cil exetil 4 MG Candesartan Cilexetil 4 MG 08/02/2020 12:00:00 AM EST 1.0 {tablet} active Candesartan Cilexetil 4 MG eCW1 ([facility]) candesartan cilexetil 4 MG Oral Tablet Candesartan Cil exetil 4 MG Candesartan Cilexetil 4 MG 08/02/2020 12:00:00 AM EST 1.0 {tablet} active Candesartan Cilexetil 4 MG eCW1 ([facility]) candesartan cilexetil 4 MG Oral Tablet Candesartan Cil exetil 4 MG Candesartan Cilexetil 4 MG 08/02/2020 12:00:00 AM EST 1.0 {tablet} active Candesartan Cilexetil 4 MG eCW1 ([facility]) Insurance Providers Payer name Policy type / Coverage type Policy ID Covered constitution party ID Covered constitution party's relationship to yeung Policy Yeung Plan Information [facility] 020/520 [id number] [facility] Medigap Part B [id number] Self [id number] [facility] Community Plan Medigap Part B [id number] Self [id number] [facility] Community Plan Medigap Part B [id number] Self [id number] [facility] Plan [facility] Part B [id number] Self [id number] [facility] Plan [facility] Part B [id number] Self [id number] [facility] Part B [id number] Self [id number] [facility] [id number] Self [id number] [facility] Part B [id number] Self [id number] [employer] [place] P[place] 302/307 [id number] [place] [place] P[place] 302/307 [id number] SP [id number] ANSI-Commercial [id number] ANSI-Commercial [id number] ANSI-Medicaid [id number] ANSI-Commercial [id number] [facility] [id number] ANSI-Commercial [id number] ANSI-Medicaid [id number] ANSI-Commercial [id number] ANSI-Medicaid [id number] ANSI-Medicaid [id number] ANSI-Commercial [id number] ANSI-Medicaid [id number] ANSI-Commercial [id number] ANSI-Medicaid [id number] ANSI-Commercial [id number] ANSI-Commercial [id number] ANSI-Medicaid [id number] ANSI-Medicaid [id number] ANSI-Commercial [id number] ANSI-Medicaid [id number] ANSI-Commercial [id number] ANSI-Commercial [id number] ANSI-Medicaid [id number] ANSI-Commercial [id number] ANSI-Medicaid [id number] SELF PAY ONLY [id number] SP [id number] [facility] O [id number] S [id number] ANSI-Not a Secondary Insurance [id number] ANSI-Medicaid [id number] ANSI-Medicaid [id number] ANSI-Medicaid [id number] ANSI-Medicaid [id number] ANSI-Medicaid [id number] [facility] [id number] ANSI-Medicaid [id number] ANSI-Medicaid [id number] Self Pay P [id number] S [id number] ANSI-Medicaid [id number] ANSI-Medicaid [id number] ANSI-Medicaid [id number] ANSI-Medicaid [id number] ANSI-Medicaid [id number] ANSI-Medicaid [id number] ANSI-Medicaid [id number] [facility] COMMUN[facility]AN [facility] [id number] SP [id number] [facility] COMMUNITY PLAN [facility] [id number] SP [id number] [place] [id number] [id number] [employer] BCBS Health Maintenance Organization (HMO) [id number] Self BCBS/Blue Card Commercial [id number] Family Dependent [place] 020/520 [id number] BLUE CROSS BLUE SHIELD -O/P [id number] 01 [id number] BLUE CROSS BLUE SHIELD -O/P [id number] SELF PAY UNAVAILABLE SP UNAVAILA BLE [place] PPO 302/307 [id number] SP [id number] [place] 020/520 [id number] SP [id number] [employer] BCBS B [id number] S W [id number] [place] 020/520 [id number] [place] 020/520 [id number] HU2 [id number] [employer] BCBS B [id number] S W [id number] [place] PPO 302/307 [id number] SP [id number] ANSI-Commercial [id number] ANSI-Medicaid [id number] [employer] Commercial [id number] Family Dependent [id number] ANSI-Medicaid [id number] Problems, Conditions, and Diagnoses Code Display Name Description Problem Type Effective Dates Data Source(s) F32.1 58585370 Current moderate epi sode of major depressive disorder without prior episode Problem 02/20/2021 12:00:00 AM EDT eCW1 ([facility]) N92.0 [id number] Menorrhagia with regular cycle Problem 10/24/2020 12:00:00 AM EST eCW1 ([facility]) Surgeries/Procedures Procedure Description Date Indications Data Source(s) Endoscopy Wrist W/Release Transverse Carpal Ligament 10/31/2020 12:00:00 AM EST MEDENT ([facility]) RADEX WRIST 2 VIEWS 10/24/2020 12:00:00 AM EST MEDENT ([facility]) Results ID Date Data Source [id number] 10/28/2020 11:24:00 AM EST [facility] ([facility]) Name Value Range Interpretation Code Description Data Leelee rce(s) Supporting Document(s) Covid Rapid Testing Laboratory test result MEDENT ([facility]) ID Date Data Source [id number] 10/25/2020 03:31:00 PM EST MEDENT ([facility]) Name Value Range Interpretation Code Description Data Leelee rce(s) Supporting Document(s) Laboratory test finding (navigational concept) Laboratory test result MEDENT ([facility]) ID Date Data Source [id number] 10/24/2020 12:00:00 AM EST eCW1 ([facility]) Name Value Range Interpretation Code Description Data Leelee rce(s) Supporting Document(s) Microalbumin/Creatinine [Mass Ratio] in Urine 148.0 eCW1 ([facility]) Microalbumin/Creatinine [Ratio] in Urine 336.4 0.0-30.0 eCW1 ([facility]) Albumin/Creatinine [Mass Ratio] in Urine 498.0 eCW1 ([facility]) ID Date Data Source [id number] 10/24/2020 12:00:00 AM EST eCW1 ([facility]) Name Value Range Interpretation Code Description Data Leelee rce(s) Supporting Document(s) Hemoglobin A1c/Hemoglobin.total in Blood 6.8 HEMOGLOBIN A1c eCW1 ([facility]) ID Date Data Source FREE T4 & TSH PANEL 10/24/2020 12:00:00 AM EST eCW1 ([facility]) Name Value Range Interpretation Code Description Data Leelee rce(s) Supporting Document(s) 1.05 0.76-1.46 FREE T4 eCW1 ([facility]) 0.849 0.358-3.740 THYROID STIMULATING HORM ONE eCW1 ([facility]) ID Date Data Source Comprehensive Metabolic Profile (CMP) 10/24/2020 12:00:00 AM EST eCW1 ([facility]) Name Value Range Interpretation Code Description Data Leelee rce(s) Supporting Document(s) 138 70-100 GLUCOSE, FASTING eCW1 ([facility]) > 60.0 >60 GLOMERULAR FILTRATION RATE eCW 1 ([facility]) 0.66 0.55-1.30 CREATININE FOR GFR eCW1 ([facility]) 16 7-18 BLOOD UREA NITROGEN eCW1 ([facility]) 140 136-145 SODIUM LEVEL eCW1 ([facility]) 5.0 3.5-5.1 POTASSIUM SERUM eCW1 ([facility]) 9.7 8.5-10.1 CALCIUM LEVEL eCW1 ([facility]) 28 21-32 CARBON DIOXIDE LEVEL eCW1 ([facility]) 10 7-37 AST/SGOT eCW1 ([facility]) 107 98-107 CHLORIDE LEVEL eCW1 ([facility]) 46 45-117 ALKALINE PHOSPHATASE eCW1 ([facility]) 0.2 0.2-1.0 BILIRUBIN,TOTAL eCW1 ([facility]) 6.9 6.4-8.2 TOTAL PROTEIN eCW1 ([facility]) 26 12-78 ALT/SGPT eCW1 ([facility]) 3.9 3.2-5.2 ALBUMIN eCW1 ([facility]) 1.3 1.2-2.2 ALBUMIN/GLOBULIN RATIO eCW1 ([facility]) ID Date Data Source CBC - Complete Blood Count 10/24/2020 12:00:00 AM EST eCW1 ( [facility]) Name Value Range Interpretation Code Description Data Leelee rce(s) Supporting Document(s) 14.1 4.0-10.0 WHITE BLOOD COUNT eCW1 ([facility]) 42.6 36.0-47.0 HEMATOCRIT eCW1 ([facility]) 13.3 12.0-15.5 HEMOGLOBIN eCW1 ([facility]) 4.81 4.00-5.40 RED BLOOD COUNT eCW1 ([facility]) 88.6 80.0-96.0 MEAN CORPUSCULAR VOLUME e CW1 ([facility]) 14.5 11.5-14.5 RED CELL DISTRIBUTION WID TH eCW1 ([facility]) 27.7 27.0-33.0 MEAN CORPUSCULAR HEMOGLOB IN eCW1 ([facility]) 391 150-450 PLATELET COUNT, AUTOMATED W1 ([facility]) 31.2 32.0-36.5 MEAN CORPUSCULAR HGB CONC W1 ([facility]) ID Date Data Source [id number] 05/18/2020 10:00:00 AM EDT [facility] Name Value Range Interpretation Code Description Data Leelee rce(s) Supporting Document(s) SARS coronavirus 2 RNA [facility] This lab was ordered by [facility] and reported by [facility]. ID Date Data Source [id number] 05/15/2020 12:00:00 AM EDT [facility] Siva Jimenez DO Patient Name: MARYBETH BAHENA[address] [place] [address] [facility] 1990[facility] [address] Date of Exam: 05/15/2020PH#: Fax: [phone] EXAM: US OB, FOLLOW-UP (GROWTH, ORGAN SYSTEMS)/FETUSCLINICAL INFORMATION: Gestational diabetes. 4, Para 0, Ab 3LMP: UnknownGA by first ultrasound: 38 weeks 6 days, SUNDAY: 05/23/2020Fetal Heart Rate: 176 BPMAmniotic fluid index: 27.6 cm (7.2 - 22.7)Amniotic fluid volume is increased (polyhydramnios).S/D Umbilical Mid-Cord: 1.90Type of Gestation: SingletonIntrauterine in breech presentation.Placental location: Left lateral, Grade 3Accredited by the [employer] in Obstetrical Ultrasound.CHIDI Mccarthy/Rafy cosme for referring MARYBETH BAHENA to our office. Electronically Signed - MULU ROLLINS DO 05/16/20 14:09 Name Value Range Interpretation Code Description Data Leelee rce(s) Supporting Document(s) ID Date Data Source [id number] 05/08/2020 12:00:00 AM EDT [facility] Siva Jimenez DO Patient Name: АЛЕКСАНДР BAHENA [facility] Date of : 1990[place] [address] Date of Exam: 05/08/2020PH#: Fax: [phone] EXAM: [...] fluid volume is increased (Polyhydramnios).Accredited by the [employer] in Obstetrical Ultrasound.CHIDI Mccarthy/Rafy cosme for referring MARYBETH BAHENA to our office. Electronically Signed - MULU ROLLINS DO 05/09/20 14:10 Name Value Range Interpretation Code Description Data Leelee rce(s) Supporting Document(s) ID Date Data Source [id number] 04/24/2020 12:00:00 AM EDT [facility] Carla Humphrey Cnm Patient Name: АЛЕКСАНДР BAHENA [facility] 1990[facility] [address] Date of Exam: 04/24/2020PH#: Fax: [phone] EXAM: [...] rce(s) Supporting Document(s) ID Date Data Source [id number] 04/24/2020 12:00:00 AM EDT [facility] Imaging Carla Humphrey Cnm Patient Name: АЛЕКСАНДР BAHENA [facility] Date of : 1990[place] [address] Date of Exam: 04/24/2020PH#: Fax: [phone] EXAM: [...] EDT Former Smoker completed Former Smoker eCW1 ([facility]) Smoking 05/29/2021 12:00:00 AM EDT Former Smoker completed Former Smoker eCW1 ([facility]) Smoking 02/21/2021 12:00:00 AM EDT Former Smoker completed Former Smoker eCW1 ([facility]) Smoking 02/21/2021 12:00:00 AM EDT Former Smoker completed Former Smoker eCW1 ([facility]) Smoking 02/21/2021 12:00:00 AM EDT Former Smoker completed Former Smoker eCW1 ([facility]) Smoking 02/21/2021 12:00:00 AM EDT Former Smoker completed Former Smoker eCW1 ([facility]) Smoking 02/21/2021 12:00:00 AM EDT Former Smoker completed Former Smoker eCW1 ([facility]) Smoking 02/20/2021 12:00:00 AM EDT Former Smoker completed Former Smoker eCW1 ([facility]) Smoking 02/20/2021 12:00:00 AM EDT Former Smoker completed Former Smoker eCW1 ([facility]) Smoking 10/24/2020 12:00:00 AM EST Former Smoker completed Former Smoker eCW1 ([facility]) Smoking 10/24/2020 12:00:00 AM EST Former Smoker completed Former Smoker eCW1 ([facility]) Smoking 10/24/2020 12:00:00 AM EST Former Smoker completed Former Smoker eCW1 ([facility]) Smoking 08/02/2020 12:00:00 AM EST Former Smoker completed Former Smoker eCW1 ([facility]) Smoking 08/02/2020 12:00:00 AM EST Former Smoker completed Former Smoker eCW1 ([facility]) Smoking 08/02/2020 12:00:00 AM EST Former Smoker completed Former Smoker eCW1 ([facility]) Smoking 06/13/2020 12:00:00 AM EDT Former Smoker completed Former Smoker eCW1 ([facility]) Smoking 06/13/2020 12:00:00 AM EDT Former Smoker completed Former Smoker eCW1 ([facility]) Vital Signs ID Date Data Source UNK Name Value Range Interpretation Code Description Data Source(s) Body weight 324.6 [lb_av] 324.6 [lb_av] eCW1 ([facility]) Body weight 147.24 kg 147.24 kg W1 ([facility]) Body height [in_i] eCW1 ([facility]) Body mass index (BMI) [Ratio] 54.01 kg/m2 54.01 kg/m2 eCW1 ([facility]) Heart rate 125 /min 125 /min eCW1 ([facility]) Respiratory rate 18 /min 18 /min eCW1 ([facility]) Body temperature 96.5 [degF] 96.5 [degF] eCW1 ( [facility]) Systolic blood pressure 126 mm[Hg] 126 mm[Hg] e CW1 ([facility]) Diastolic blood pressure 64 mm[Hg] 64 mm[Hg] eCW1 ([facility]) Body temperature 97.8 [degF] 97.8 [degF] eCW1 ( [facility]) Systolic blood pressure 158 mm[Hg] 158 mm[Hg] e CW1 ([facility]) Body weight 311 [lb_av] 311 [lb_av] eCW1 ([facility]) Body height [in_i] eCW1 ([facility]) Body mass index (BMI) [Ratio] 60.73 kg/m2 60.73 kg/m2 eCW1 ([facility]) Heart rate 110 /min 110 /min eCW1 ([facility]) Respiratory rate 18 /min 18 /min eCW1 ([facility]) Diastolic blood pressure 88 mm[Hg] 88 mm[Hg] eCW1 ([facility]) Body temperature 94.7 [degF] 94.7 [degF] MEDENT ([facility]) Body mass index (BMI) [Ratio] 52.7 kg/m2 52.7 k g/m2 MEDENT ([facility]) Body weight 307.00 [lb_av] 307.00 [lb_av] MEDEN T ([facility]) Body temperature 97.1 [degF] 97.1 [degF] MEDENT ([facility]) Body height 64 [in_i] 64 [in_i] MEDENT ([facility]) 5'4" Body weight 311.2 [lb_av] 311.2 [lb_av] eCW1 ([facility]) Body height [in_i] eCW1 ([facility]) Body mass index (BMI) [Ratio] 60.77 kg/m2 60.77 kg/m2 eCW1 ([facility]) Heart rate 121 /min 121 /min eCW1 ([facility]) Respiratory rate 18 /min 18 /min eCW1 ([facility]) Body temperature 97.1 [degF] 97.1 [degF] eCW1 ( [facility]) Systolic blood pressure 134 mm[Hg] 134 mm[Hg] e CW1 ([facility]) Diastolic blood pressure 84 mm[Hg] 84 mm[Hg] eCW1 ([facility]) Systolic blood pressure 160 mm[Hg] 160 mm[Hg] e CW1 ([facility]) Body temperature 98.9 [degF] 98.9 [degF] eCW1 ( [facility]) Diastolic blood pressure 80 mm[Hg] 80 mm[Hg] eCW1 ([facility]) Respiratory rate 18 /min 18 /min eCW1 ([facility]) Body mass index (BMI) [Ratio] 58.08 kg/m2 58.08 kg/m2 eCW1 ([facility]) Heart rate 79 /min 79 /min eCW1 ([facility]) Body weight 297.4 [lb_av] 297.4 [lb_av] eCW1 ([facility]) Body height [in_i] eCW1 ([facility]) Body weight 289.6 [lb_av] 289.6 [lb_av] eCW1 ([facility]) Body height [in_i] eCW1 ([facility]) Body mass index (BMI) [Ratio] 56.55 kg/m2 56.55 kg/m2 eCW1 ([facility]) Heart rate 96 /min 96 /min eCW1 ([facility]) Respiratory rate 18 /min 18 /min eCW1 ([facility]) Body temperature 97 [degF] 97 [degF] eCW1 ([facility]) Systolic blood pressure 130 mm[Hg] 130 mm[Hg] e CW1 ([facility]) Diastolic blood pressure 90 mm[Hg] 90 mm[Hg] eCW1 ([facility]) Patient Treatment Plan of Care Planned Activity Planned Date Details Description Data Source (s) candesartan cilexetil 8 MG Oral Tablet 02/20/2021 12:00:00 AM EDT eCW1 ([facility]) candesartan cilexetil 8 MG Oral Tablet 02/20/2021 12:00:00 AM EDT eCW1 ([facility]) candesartan cilexetil 8 MG Oral Tablet 02/20/2021 12:00:00 AM EDT eCW1 ([facility]) candesartan cilexetil 8 MG Oral Tablet 02/20/2021 12:00:00 AM EDT eCW1 ([facility]) candesartan cilexetil 8 MG Oral Tablet 02/20/2021 12:00:00 AM EDT eCW1 ([facility]) candesartan cilexetil 8 MG Oral Tablet 02/20/2021 12:00:00 AM EDT eCW1 ([facility]) candesartan cilexetil 8 MG Oral Tablet 02/20/2021 12:00:00 AM EDT eCW1 ([facility]) candesartan cilexetil 4 MG Oral Tablet 08/02/2020 12:00:00 AM EST eCW1 ([facility]) candesartan cilexetil 4 MG Oral Tablet 08/02/2020 12:00:00 AM EST eCW1 ([facility]) candesartan cilexetil 4 MG Oral Tablet 08/02/2020 12:00:00 AM EST eCW1 ([facility]) candesartan cilexetil 4 MG Oral Tablet 08/02/2020 12:00:00 AM EST eCW1 ([facility]) candesartan cilexetil 4 MG Oral Tablet 08/02/2020 12:00:00 AM EST eCW1 ([facility]) candesartan cilexetil 4 MG Oral Tablet 08/02/2020 12:00:00 AM EST eCW1 ([facility])
--- NOTE | 2021-06-14 09:04 | REP ---
INDICATION: DYSPNEA/COUGH COMPARISON: 08/16/2018 TECHNIQUE: Portable AP view of the chest FINDINGS: The mediastinum and cardiac silhouette are stable and within normal limits for portable technique. The lung fatima are clear without acute consolidation, effusion, or pneumothorax. Skeletal structures are intact. IMPRESSION: No acute cardiopulmonary process appreciated. <Electronically signed by Reynaldo Hughes > 06/14/21 0900
[2021-06-14 09:05] LABS: RSV AMPLIFICATION POSITIVE (NEGATIVE)
[2021-06-14] MEDS ORDERED: MUCI600T31 PO (09:30)
[2021-06-14] MEDS ORDERED: PRED20TA PO (09:30)
[2021-06-14] MEDS ORDERED: BENZ200C70 PO (09:30)
[2021-06-14 09:46] VITALS: BP 145/84
== END 2021-06-14 09:59 | disposition home or self-care (01) ==
LOC: M ED 02:41
DX: J21.0 Acute bronchiolitis due to respiratory syncytial virus (principal); R00.0 Tachycardia, unspecified; E11.9 Type 2 diabetes mellitus without complications; I10 Essential (primary) hypertension; J45.909 Unspecified asthma, uncomplicated; F32.9 Major depressive disorder, single episode, unspecified; F17.200 Nicotine dependence, unspecified, uncomplicated; Z79.4 Long term (current) use of insulin; Z88.0 Allergy status to penicillin; Z88.6 Allergy status to analgesic agent; Z91.040 Latex allergy status
CPT/HCPCS: 71045; 87631; 93005; 94640; 99284; Q0162

== ENCOUNTER → 2021-08-18 | Outpatient (CLI) | payer BC ==
[~2021-08-18] MED LIST changes: +BENZ200C70 PO; -CAND4TAB PO; +CAND4TAB7 PO; +CAND8TAB8 PO; +MUCI600T31 PO
[2021-08-18 16:54] LABS: HEMOGLOBIN A1c 8.4 %
[2021-08-18 17:05] LABS: BLOOD UREA NITROGEN 10 MG/DL (7-18); CARBON DIOXIDE LEVEL 28 MEQ/L (21-32); CHLORIDE LEVEL 107 MEQ/L (98-107); CREATININE FOR GFR 0.57 MG/DL (0.55-1.30); GLOMERULAR FILTRATION RATE > 60.0 (>60); GLUCOSE, FASTING 128 MG/DL (70-100); POTASSIUM SERUM 3.9 MEQ/L (3.5-5.1); SODIUM LEVEL 140 MEQ/L (136-145)
== END ==
LOC: M WUC 14:22
PROVIDERS: ATTEND Physician Assistant
DX: E11.9 Type 2 diabetes mellitus without complications (principal)

== ENCOUNTER → 2021-11-24 | Outpatient (CLI) | payer BC ==
[2021-11-24 16:21] LABS: BLOOD UREA NITROGEN 11 MG/DL (7-18); CALCIUM LEVEL 8.9 MG/DL (8.5-10.1); CARBON DIOXIDE LEVEL 28 MEQ/L (21-32); CHLORIDE LEVEL 109 MEQ/L (98-107); CREATININE FOR GFR 0.66 MG/DL (0.55-1.30); GLOMERULAR FILTRATION RATE > 60.0 (>60); GLUCOSE, FASTING 206 MG/DL (70-100); POTASSIUM SERUM 4.3 MEQ/L (3.5-5.1); SODIUM LEVEL 140 MEQ/L (136-145)
== END ==
LOC: M WUC 13:20
PROVIDERS: ATTEND Physician Assistant
DX: E66.01 Morbid (severe) obesity due to excess calories (principal); E11.65 Type 2 diabetes mellitus with hyperglycemia

== ENCOUNTER 2022-04-22 20:01 | Emergency (ER) | payer BC ==
[~2022-04-22] VITALS: Ht 165.1 cm; Wt 138.8 kg
[2022-04-22 20:02] VITALS: BP 150/90
[2022-04-22] MEDS ORDERED: KETOROLAC 60MG 2ML VIAL IM ONE (21:25)
[2022-04-22] MEDS ORDERED: LIDOCAINE 4% CREAM 5GM (LMX4) TOP ONE (21:25)
[2022-04-22] MEDS ORDERED: CLINDAMYCIN 150MG CAPSULE PO ONE (21:25)
[2022-04-22] MEDS ORDERED: ANEC4CRE3 TOP (21:36)
[2022-04-22] MEDS ORDERED: CLEO300C2 PO (21:36)
== END 2022-04-22 21:45 | disposition home or self-care (01) ==
LOC: M ED 21:37
DX: L03.311 Cellulitis of abdominal wall (principal); E11.9 Type 2 diabetes mellitus without complications; I10 Essential (primary) hypertension; J45.909 Unspecified asthma, uncomplicated; Z87.891 Personal history of nicotine dependence; Z79.4 Long term (current) use of insulin; Z79.84 Long term (current) use of oral hypoglycemic drugs; Z79.899 Other long term (current) drug therapy; Z88.0 Allergy status to penicillin; Z88.6 Allergy status to analgesic agent; Z91.040 Latex allergy status
CPT/HCPCS: 96372; 99282; J1885

== ENCOUNTER 2022-08-28 12:37 | Emergency (ER) | payer BC ==
[~2022-08-28] VITALS: Ht 162.6 cm; Wt 138.2 kg
[~2022-08-28 12:37] MED LIST changes: +ANEC4CRE3 TOP; +CLEO300C2 PO; -DOXY-350 PO; +DOXY-444 PO
[2022-08-28] MEDS ORDERED: NS 1,000 ML IV ONE (19:50)
[2022-08-28] MEDS ORDERED: ONDANSETRON 4MG 2ML VIAL IV ONE (19:50)
[2022-08-28 20:20] LABS: HEMATOCRIT 42.7 % (36.0-47.0); HEMOGLOBIN 13.7 g/dl (12.0-15.5); MEAN CORPUSCULAR HEMOGLOBIN 28.4 pg (27.0-33.0); MEAN CORPUSCULAR HGB CONC 32.1 g/dl (32.0-36.5); MEAN CORPUSCULAR VOLUME 88.4 fl (80.0-96.0); PLATELET COUNT, AUTOMATED 350 10^3/uL (150-450); RED BLOOD COUNT 4.83 10^6/uL (4.00-5.40); WHITE BLOOD COUNT 14.4 10^3/uL (4.0-10.0)
[2022-08-28 20:34] LABS: HEMOGLOBIN A1c 8.6 % (4.0-6.0)
[2022-08-28 20:40] LABS: LIPASE 41 U/L (12-53)
[2022-08-28 20:41] LABS: MAGNESIUM LEVEL 1.7 MG/DL (1.8-2.4)
[2022-08-28 20:43] LABS: ALBUMIN 3.6 G/DL (3.2-5.2); ALKALINE PHOSPHATASE 50 U/L (46-116); ALT/SGPT 62 U/L (7.0-40); AST/SGOT 56 U/L (<34); BILIRUBIN,DIRECT < 0.1 MG/DL (<0.4); BILIRUBIN,TOTAL 0.3 MG/DL (0.3-1.2); BLOOD UREA NITROGEN 9 MG/DL (9-23); CALCIUM LEVEL 9.2 MG/DL (8.5-10.1); CARBON DIOXIDE LEVEL 23 MMOL/L (20-31); CHLORIDE LEVEL 104 MMOL/L (98-107); GLOMERULAR FILTRATION RATE > 60.0 (>60); GLUCOSE, FASTING 153 MG/DL (60-100); PHOSPHORUS LEVEL 3.7 MG/DL (2.5-4.9); POTASSIUM SERUM 3.9 MMOL/L (3.5-5.1); SODIUM LEVEL 139 MMOL/L (136-145); TOTAL PROTEIN 6.9 G/DL (5.7-8.2)
[2022-08-28 20:45] LABS: ATYPICAL LYMPH 3 % (0-5); EOSINOPHILS 5 % (0-3); LYMPHOCYTES 24 % (16-44); MONOCYTES 2 % (0-5); NEUTROPHILS 66 % (28-66); PLATELET ESTIMATE NORMAL (NORMAL)
[2022-08-28 22:11] LABS: OSMOLALITY SERUM 287 MOSM/KG (275-295)
[2022-08-28] MEDS ORDERED: CIPR-249 PO (22:23)
[2022-08-28] MEDS ORDERED: CIPROFLOXACIN 500MG TABLET PO ONE (22:25)
[2022-08-28 22:32] VITALS: BP 169/94
== END 2022-08-28 22:39 | disposition home or self-care (01) ==
LOC: M ED 12:37
DX: N39.0 Urinary tract infection, site not specified (principal); E11.9 Type 2 diabetes mellitus without complications; I10 Essential (primary) hypertension; J45.909 Unspecified asthma, uncomplicated; E66.9 Obesity, unspecified; F41.9 Anxiety disorder, unspecified; F32.9 Major depressive disorder, single episode, unspecified; F12.10 Cannabis abuse, uncomplicated; Z87.891 Personal history of nicotine dependence; Z79.4 Long term (current) use of insulin; Z79.84 Long term (current) use of oral hypoglycemic drugs; Z79.899 Other long term (current) drug therapy; Z88.0 Allergy status to penicillin; Z88.6 Allergy status to analgesic agent; Z91.040 Latex allergy status
CPT/HCPCS: 80048; 80076; 81000; 81015; 82010; 83036; 83690; 83735; 83930; 84100; 84702; 85025; 87086; 87428; 96361; 96374; 99284; J2405

== ENCOUNTER → 2023-01-12 | Outpatient (REF) | payer OTHER ==
[~2023-01-12] MED LIST changes: +CIPR-249 PO
[2023-01-12 13:09] LABS: ALBUMIN 3.5 G/DL (3.2-5.2); ALKALINE PHOSPHATASE 44 U/L (46-116); ALT/SGPT 37 U/L (7.0-40); AST/SGOT 23 U/L (<34); BILIRUBIN,TOTAL 0.2 MG/DL (0.3-1.2); BLOOD UREA NITROGEN 13 MG/DL (9-23); CALCIUM LEVEL 9.8 MG/DL (8.5-10.1); CARBON DIOXIDE LEVEL 29 MMOL/L (20-31); CHLORIDE LEVEL 107 MMOL/L (98-107); CHOLESTEROL LEVEL 179 MG/DL (<200); CHOLESTEROL RISK RATIO 3.08 (<5); CREATININE FOR GFR 0.57 MG/DL (0.55-1.30); GLOMERULAR FILTRATION RATE > 60.0 (>60); GLUCOSE, FASTING 103 MG/DL (60-100); LDL CHOLESTEROL 100.2 MG/DL (<100); SODIUM LEVEL 142 MMOL/L (136-145); TOTAL PROTEIN 6.7 G/DL (5.7-8.2); TRIGLYCERIDES LEVEL 104 MG/DL (<150)
[2023-01-12 13:11] LABS: HEMATOCRIT 42.4 % (36.0-47.0); HEMOGLOBIN 13.4 g/dl (12.0-15.5); MEAN CORPUSCULAR HEMOGLOBIN 28.2 pg (27.0-33.0); MEAN CORPUSCULAR HGB CONC 31.6 g/dl (32.0-36.5); MEAN CORPUSCULAR VOLUME 89.1 fl (80.0-96.0); PLATELET COUNT, AUTOMATED 336 10^3/uL (150-450); RED BLOOD COUNT 4.76 10^6/uL (4.00-5.40); WHITE BLOOD COUNT 10.7 10^3/uL (4.0-10.0)
[2023-01-12 13:28] LABS: HEMOGLOBIN A1c 7.8 % (4.0-6.0)
[2023-01-12 13:41] LABS: CREATININE, URINE 125.9 MG/DL; MAU/CREAT RATIO 221.6 MCG/MG (0.0-30.0)
== END ==
LOC: M SFHCADAM 09:35
PROVIDERS: ATTEND Physician Assistant
DX: I10 Essential (primary) hypertension (principal); E11.65 Type 2 diabetes mellitus with hyperglycemia; R80.9 Proteinuria, unspecified

== ENCOUNTER → 2023-03-17 | Outpatient (CLI) | payer OTHER | LOC: M RAD 07:30 | PROVIDERS: ATTEND Physician Assistant | DX: Z01.818 Encounter for other preprocedural examination (principal); Z68.42 Body mass index [BMI] 45.0-49.9, adult; E11.65 Type 2 diabetes mellitus with hyperglycemia; K76.0 Fatty (change of) liver, not elsewhere classified; R16.0 Hepatomegaly, not elsewhere classified ==

== ENCOUNTER → 2023-03-31 | Outpatient (REF) | payer OTHER | LOC: M SFHCADAM 12:37 | PROVIDERS: ATTEND Physician Assistant | DX: Z01.818 Encounter for other preprocedural examination (principal); Z71.3 Dietary counseling and surveillance; Z68.42 Body mass index [BMI] 45.0-49.9, adult ==

== ENCOUNTER 2023-06-04 12:09 | Day surgery (SDC) | payer OTHER ==
[~2023-06-04] VITALS: Ht 165.1 cm; Wt 133.1 kg
[~2023-06-04 12:09] MED LIST changes: +METF500T13 PO; +NS 1,000 ML IV ONE
[2023-06-04] MEDS ORDERED: propofoL 200 MG/20 ML VIAL As Ordered ONE (14:18)
[2023-06-04] MEDS ORDERED: fentaNYL 100 MCG/2 ML INJECTION As Ordered ONE (14:18)
[2023-06-04] MEDS ORDERED: LIDOCAINE 2% 100MG/5ML SDV (FOR ANES.) As Ordered ONE (14:18)
[2023-06-04 14:47] VITALS: TEMP 98.5
[2023-06-04 15:10] VITALS: BP 138/90; O2SAT 97
== END 2023-06-04 15:20 | disposition home or self-care (01) ==
LOC: M OPP 12:09
PROVIDERS: ATTEND Internal Medicine Gastroenterology
DX: Z01.818 Encounter for other preprocedural examination (principal); K31.89 Other diseases of stomach and duodenum; K44.9 Diaphragmatic hernia without obstruction or gangrene; K29.70 Gastritis, unspecified, without bleeding; E66.01 Morbid (severe) obesity due to excess calories; R12 Heartburn; G47.30 Sleep apnea, unspecified; Z99.89 Dependence on other enabling machines and devices; Z87.891 Personal history of nicotine dependence; E11.9 Type 2 diabetes mellitus without complications; Z79.4 Long term (current) use of insulin; Z79.51 Long term (current) use of inhaled steroids; Z79.899 Other long term (current) drug therapy
CPT/HCPCS: 43239; 88305; J3010

== ENCOUNTER → 2023-07-30 | Outpatient (REF) | payer OTHER ==
[~2023-07-30] MED LIST changes: -NS 1,000 ML IV ONE
[2023-07-30 18:37] LABS: HEMATOCRIT 40.4 % (36.0-47.0); HEMOGLOBIN 12.9 g/dl (12.0-15.5); MEAN CORPUSCULAR HEMOGLOBIN 28.6 pg (27.0-33.0); MEAN CORPUSCULAR HGB CONC 31.9 g/dl (32.0-36.5); MEAN CORPUSCULAR VOLUME 89.6 fl (80.0-96.0); PLATELET COUNT, AUTOMATED 325 10^3/uL (150-450); RED BLOOD COUNT 4.51 10^6/uL (4.00-5.40); WHITE BLOOD COUNT 11.8 10^3/uL (4.0-10.0)
[2023-07-30 19:02] LABS: ALBUMIN 3.7 G/DL (3.2-5.2); ALKALINE PHOSPHATASE 51 U/L (46-116); ALT/SGPT 37 U/L (7.0-40); AST/SGOT 17 U/L (<34); BILIRUBIN,TOTAL 0.3 MG/DL (0.3-1.2); BLOOD UREA NITROGEN 13 MG/DL (9-23); CALCIUM LEVEL 9.6 MG/DL (8.5-10.1); CARBON DIOXIDE LEVEL 26 MMOL/L (20-31); CHLORIDE LEVEL 107 MMOL/L (98-107); CREATININE FOR GFR 0.54 MG/DL (0.55-1.30); GLOMERULAR FILTRATION RATE > 60.0 (>60); GLUCOSE, FASTING 154 MG/DL (60-100); SODIUM LEVEL 142 MMOL/L (136-145); TOTAL PROTEIN 6.6 G/DL (5.7-8.2)
[2023-07-30 19:04] LABS: FOLATE 13.8 NG/ML (>5.4)
[2023-07-30 19:06] LABS: HEMOGLOBIN A1c 6.7 % (4.0-6.0); VITAMIN B12 LEVEL 532 PG/ML (211-911)
== END ==
LOC: M SFHCADAM 14:27
PROVIDERS: ATTEND Physician Assistant
DX: I10 Essential (primary) hypertension (principal); E11.9 Type 2 diabetes mellitus without complications; G47.33 Obstructive sleep apnea (adult) (pediatric); Z98.84 Bariatric surgery status; F17.211 Nicotine dependence, cigarettes, in remission; E66.01 Morbid (severe) obesity due to excess calories

== ENCOUNTER → 2023-10-25 | Outpatient (REF) | payer OTHER ==
[2023-10-25 13:42] LABS: BLOOD UREA NITROGEN 14 MG/DL (9-23); CALCIUM LEVEL 9.2 MG/DL (8.5-10.1); CARBON DIOXIDE LEVEL 26 MMOL/L (20-31); CHLORIDE LEVEL 110 MMOL/L (98-107); GLOMERULAR FILTRATION RATE > 60.0 (>60); GLUCOSE, FASTING 154 MG/DL (60-100); POTASSIUM SERUM 4.8 MMOL/L (3.5-5.1); SODIUM LEVEL 141 MMOL/L (136-145)
[2023-10-25 13:43] LABS: CREATININE, URINE 223.4 MG/DL; MAU/CREAT RATIO 82.8 MCG/MG (0.0-30.0)
== END ==
LOC: M SFHCADAM 09:05
PROVIDERS: ATTEND Physician Assistant
DX: F32.1 Major depressive disorder, single episode, moderate (principal)

== ENCOUNTER 2023-12-09 00:24 | Emergency (ER) | payer OTHER ==
[~2023-12-09] VITALS: Ht 165.1 cm; Wt 98.5 kg
[2023-12-09] MEDS: IPRATROPIUM 0.5MG/ALBUTEROL 2.5MG INH SOL UD 3ML (DUONEB) NEB PRN (03:43)
[2023-12-09] MEDS: dexAMETHasone 20MG/5ML VIAL IV ONE (03:45)
[2023-12-09] MEDS ORDERED: PRED20TA PO (04:49)
[2023-12-09 05:00] VITALS: BP 134/70; TEMP 97.9; O2SAT 96
== END 2023-12-09 05:17 | disposition home or self-care (01) ==
LOC: M ED 00:24
DX: J44.1 Chronic obstructive pulmonary disease with (acute) exacerbation (principal); E11.9 Type 2 diabetes mellitus without complications; I10 Essential (primary) hypertension; J45.909 Unspecified asthma, uncomplicated; F32.A Depression, unspecified; E66.9 Obesity, unspecified; G47.33 Obstructive sleep apnea (adult) (pediatric); Z98.84 Bariatric surgery status; Z87.891 Personal history of nicotine dependence; Z79.4 Long term (current) use of insulin; Z88.0 Allergy status to penicillin; Z88.6 Allergy status to analgesic agent; Z91.040 Latex allergy status
CPT/HCPCS: 71046; 87486; 87581; 87633; 87798; 94640; 99284; J1100

== ENCOUNTER → 2024-02-21 | Outpatient (CLI) | payer OTHER ==
[~2024-02-21] MED LIST changes: +DOXY-440 PO; -DOXY-444 PO
[2024-02-21 08:57] LABS: HEMATOCRIT 37.5 % (36.0-47.0); HEMOGLOBIN 12.4 g/dl (12.0-15.5); MEAN CORPUSCULAR HGB CONC 33.1 g/dl (32.0-36.5); MEAN CORPUSCULAR VOLUME 90.8 fl (80.0-96.0); PLATELET COUNT, AUTOMATED 285 10^3/uL (150-450); RED BLOOD COUNT 4.13 10^6/uL (4.00-5.40); WHITE BLOOD COUNT 9.2 10^3/uL (4.0-10.0)
[2024-02-21 09:24] LABS: HEMOGLOBIN A1c 6.1 % (4.0-6.0)
[2024-02-21 09:26] LABS: ALBUMIN 3.6 G/DL (3.2-5.2); ALKALINE PHOSPHATASE 51 U/L (46-116); ALT/SGPT 35 U/L (7.0-40); AST/SGOT 10 U/L (<34); BILIRUBIN,TOTAL 0.4 MG/DL (0.3-1.2); BLOOD UREA NITROGEN 13 MG/DL (9-23); CALCIUM LEVEL 9.2 MG/DL (8.5-10.1); CARBON DIOXIDE LEVEL 28 MMOL/L (20-31); CHLORIDE LEVEL 109 MMOL/L (98-107); CHOLESTEROL LEVEL 144 MG/DL (<200); CHOLESTEROL RISK RATIO 2.72 (<5); CREATININE FOR GFR 0.51 MG/DL (0.55-1.30); GLOMERULAR FILTRATION RATE > 60.0 (>60); GLUCOSE, FASTING 168 MG/DL (60-100); HDL CHOLESTEROL 52.8 MG/DL (>40); LDL CHOLESTEROL 78.4 MG/DL (<100); NON-HDL-C 91.2 MG/DL; POTASSIUM SERUM 4.1 MMOL/L (3.5-5.1); PTH INTACT 46.4 PG/ML (18.5-88.0); SODIUM LEVEL 141 MMOL/L (136-145); TOTAL PROTEIN 6.2 G/DL (5.7-8.2); TRIGLYCERIDES LEVEL 64 MG/DL (<150)
[2024-02-21 09:27] LABS: FERRITIN 63.4 NG/ML (7.3-270.7); TOTAL 25(OH) VITAMIN D 50.8 NG/ML (20.0-100.0)
[2024-02-21 09:28] LABS: FOLATE > 24.0 NG/ML (>5.4); VITAMIN B12 LEVEL 671 PG/ML (211-911)
== END ==
LOC: M LAB 08:02
PROVIDERS: ATTEND Physician Assistant
DX: E11.9 Type 2 diabetes mellitus without complications (principal); E53.8 Deficiency of other specified B group vitamins; Z98.84 Bariatric surgery status

== ENCOUNTER 2024-03-24 11:03 | Emergency (ER) | payer OTHER ==
[~2024-03-24] VITALS: Ht 165.1 cm; Wt 83.8 kg
[2024-03-24] MEDS ORDERED: CYAN1000VL (11:22)
[2024-03-24] MEDS ORDERED: CAND4TAB7 (11:22)
[2024-03-24 12:23] LABS: BASO # 0.1 10^3/uL (0.0-0.2); BASO % 0.6 % (0.0-1.0); EOS # 0.2 10^3/uL (0.0-0.5); EOS % 1.8 % (0.0-3.0); HEMATOCRIT 39.8 % (36.0-47.0); HEMOGLOBIN 13.6 g/dl (12.0-15.5); LYMPH # 2.6 10^3/uL (1.5-5.0); LYMPH % 31.4 % (24.0-44.0); MEAN CORPUSCULAR HEMOGLOBIN 29.9 pg (27.0-33.0); MEAN CORPUSCULAR HGB CONC 34.2 g/dl (32.0-36.5); MEAN CORPUSCULAR VOLUME 87.5 fl (80.0-96.0); MONO # 0.4 10^3/uL (0.0-0.8); MONO % 4.9 % (2.0-8.0); NEUTROPHILS # 5.1 10^3/uL (1.5-8.5); NEUTROPHILS % 61.1 % (36.0-66.0); PLATELET COUNT, AUTOMATED 273 10^3/uL (150-450); RED BLOOD COUNT 4.55 10^6/uL (4.00-5.40); WHITE BLOOD COUNT 8.3 10^3/uL (4.0-10.0)
[2024-03-24 12:41] LABS: CK-MB VALUE MASS 1.2 NG/ML (<3.6)
[2024-03-24 12:42] LABS: LIPASE 33 U/L (12-53)
[2024-03-24 12:44] LABS: ALBUMIN 3.9 G/DL (3.2-5.2); ALKALINE PHOSPHATASE 48 U/L (46-116); ALT/SGPT 30 U/L (7.0-40); AST/SGOT 15 U/L (<34); BILIRUBIN,DIRECT 0.2 MG/DL (<0.4); BILIRUBIN,TOTAL 0.6 MG/DL (0.3-1.2); CPK CREATINE PHOSPHOKINASE 80 U/L (34-145); TOTAL PROTEIN 6.4 G/DL (5.7-8.2)
[2024-03-24 12:59] LABS: HCG, SERUM QUALITATIVE NEGATIVE (NEGATIVE)
[2024-03-24] MEDS ORDERED: NIFE10CA2 PO (15:24)
[2024-03-24] MEDS: NIFEdipine 10 MG CAP PO ONE (15:45)
[2024-03-24 17:15] VITALS: BP 128/77; TEMP 97.5; O2SAT 99
== END 2024-03-24 17:25 | disposition home or self-care (01) ==
LOC: M ED 11:03
DX: I12.9 Hypertensive chronic kidney disease with stage 1 through stage 4 chronic kidney disease, or unspecified chronic kidney disease (principal); R10.9 Unspecified abdominal pain; E11.9 Type 2 diabetes mellitus without complications; Z98.84 Bariatric surgery status; F17.200 Nicotine dependence, unspecified, uncomplicated; K57.30 Diverticulosis of large intestine without perforation or abscess without bleeding; Z79.4 Long term (current) use of insulin; Z88.0 Allergy status to penicillin; Z88.1 Allergy status to other antibiotic agents; Z88.8 Allergy status to other drugs, medicaments and biological substances; Z91.040 Latex allergy status

== ENCOUNTER → 2024-05-11 | Outpatient (REF) | payer OTHER ==
[~2024-05-11] MED LIST changes: +CAND4TAB7; +CYAN1000VL; +NIFE10CA61 PO
[2024-05-13 13:46] LABS: HPV APTIMA Not Detected (Not Detected)
== END ==
LOC: M SFHCADAM 17:41
PROVIDERS: ATTEND Physician Assistant
DX: Z12.4 Encounter for screening for malignant neoplasm of cervix (principal)
CPT/HCPCS: 87624; G0123

== ENCOUNTER 2025-01-10 18:03 | Emergency (ER) | payer OTHER ==
[~2025-01-10] VITALS: Ht 165.1 cm; Wt 74.9 kg
[2025-01-10 18:47] LABS: KETONE, URINE AUTO RFX NEGATIVE (NEGATIVE); MUCUS, URINE RFX SMALL (NEGATIVE); NITRITE, URINE AUTO RFX NEGATIVE (NEGATIVE); RBC, URINE AUTO RFX 60 /HPF (0-3); SQUAM EPITHELIAL CELL UR AURFX 1 /HPF (0-6)
[2025-01-10 19:17] LABS: LEUKOCYTE ESTERASE UR AUTO RFX 2+ (NEGATIVE); WBC, URINE AUTO RFX 48 /HPF (0-3)
[2025-01-10] MEDS ORDERED: NITR100C3 PO (20:06)
[2025-01-10] MEDS ORDERED: PHEN1TAB73 PO (20:07)
[2025-01-10 20:11] VITALS: BP 148/73; TEMP 98.1; O2SAT 100
[2025-01-10] MEDS: NITROFURANTOIN 100 MG CAP PO ONE (20:11)
== END 2025-01-10 20:14 | disposition home or self-care (01) ==
LOC: EEVIPCON 18:03 → M ED 18:03
DX: N30.01 Acute cystitis with hematuria (principal); Z98.84 Bariatric surgery status; Z79.2 Long term (current) use of antibiotics; Z79.899 Other long term (current) drug therapy